=== PATIENT | female | born 1945 | race Caucasian/White ===

== ENCOUNTER 2018-01-01 15:45 | Observation (INO) ==
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
[2018-01-01 17:11] LABS: Baso % (Auto) 0.7 % (0.0-2.0); Eos # (Auto) 0.1 th/mm3 (0.0-0.4); Eos % (Auto) 1.1 % (0.0-4.0); Hematocrit 38.2 % (35.0-46.0); Hemoglobin 13.1 gm/dL (11.6-15.3); Lymph # (Auto) 1.6 th/mm3 (1.0-4.8); Mean Corpuscular HGB Conc 34.3 % (32.0-36.0); Mean Corpuscular Hemoglobin 30.2 pg (27.0-34.0); Mean Platelet Volume 8.5 fL (7.0-11.0); Mono # (Auto) 0.4 th/mm3 (0.0-0.9); Mono % (Auto) 6.7 % (0.0-8.0); Neut # (Auto) 3.9 th/mm3 (1.8-7.7); Neut % (Auto) 64.5 % (16.0-70.0); Platelet Count 256 th/mm3 (150-450); Red Blood Count 4.34 mil/mm3 (4.00-5.30); Red Cell Distribution Width 13.5 % (11.6-17.2)
[2018-01-01 17:20] LABS: Amphetamine Screen,Urine Neg (Neg); Barbiturate Screen,Urine Neg (Neg); Cannabinoid Screen,Urine Neg (Neg); Cocaine Screen,Urine Neg (Neg)
[2018-01-01 17:25] LABS: Opiate Screen,Urine Neg (Neg)
[2018-01-01 17:26] LABS: Alanine Aminotransferase 27 U/L (10-53); Albumin 4.2 g/dL (3.4-5.0); Anion Gap 7 meq/L (5-15); Aspartate Aminotransferase 14 U/L (15-37); Blood Urea Nitrogen 9 mg/dL (7-18); Calcium 9.3 mg/dL (8.5-10.1); Carbon Dioxide 29.8 meq/L (21.0-32.0); Chloride 103 meq/L (98-107); Glomerular Filtration Rate Greater Than 89 mL/min (>89); Glucose,Random 94 mg/dL (74-106); Magnesium 2.4 mg/dL (1.5-2.5); Sodium 140 meq/L (136-145)
[2018-01-01 17:32] LABS: Bilirubin,Urine Negative (Negative); Clarity,Urine Clear (Clear); Color,Urine Straw (Yellw/Straw); Glucose,Urine (UA) Negative (Negative); Leukocyte Esterase,Urine Negative (Negative); Mucus,Urine Few /lpf (Occasional); Nitrite,Urine Negative (Negative); Specific Gravity,Urine 1.002 (1.002-1.035)
[2018-01-01 17:36] LABS: Alkaline Phosphatase 78 U/L (45-117); Total Protein 7.5 g/dL (6.4-8.2)
--- NOTE | 2018-01-01 19:17 | CT ---
EXAM DATE: 01/01/2018 7:06 PM EDT AGE/SEX: 72 years / Female INDICATIONS: Right lower quadrant abdominal pain. CLINICAL DATA: This is the patient's initial encounter. Patient reports that signs and symptoms have been present for 1 day and indicates a pain score of 4/10. MEDICAL/SURGICAL HISTORY: Hypertension. A-fib. Seizures. Hysterectomy. ORAL CONTRAST: No oral contrast ingested. RADIATION DOSE: 14.52 CTDI (mGy) COMPARISON: No prior exams available for comparison. TECHNIQUE: Multiple contiguous axial images were obtained through the abdomen and pelvis following b olus infusion of 75 ml Omnipaque 350 (iohexol) nonionic water-soluble contrast as a single exam dos e. No oral contrast ingested. Using automated exposure control and adjustment of the mA and/or kV ac cording to patient size, radiation dose was kept as low as reasonably achievable to obtain optimal di agnostic quality images. DICOM format image data is available electronically for review and comparis on. FINDINGS: Lung bases are clear. There are degenerative changes of the spine noted. No pleural or pericardial ef fusions are seen. Liver, gallbladder, spleen, pancreas, adrenals, kidneys are unremarkable. Urinary b ladder is unremarkable. The patient is status post hysterectomy. There is severe diverticulosis of th e sigmoid colon, descending, transverse and descending colonic segments. There is no evidence for div erticulitis. Terminal ileum is unremarkable. The appendix is prominent in caliber up to 1.2 cm with w all thickening noted. There is a question of mild periappendiceal induration. No free fluid or absces s. No free air. Degenerative changes of the spine are noted. CONCLUSION: 1. Abnormal appendix characteristic of at least early appendicitis without perforation or abscess. 2. Severe diverticulosis without diverticulitis. Electronically signed by: Urbano Arguelles MD 01/01/2018 7:16 PM EDT
[2018-01-01] MEDS ORDERED: Ciprofloxacin 400 MG/200 ML 400 MG/200 ML PIGGYBACK IV.SIG ONE (20:07)
[2018-01-01] MEDS ORDERED: Bisacodyl 10 MG Supp RECTAL PRN (20:47)
--- NOTE | 2018-01-01 20:51 | P.HP ---
History of Present Illness Service: Hospitalist Primary Care Physician: No Primary Care Physician Chief Complaint: RLQ pain, dementia, suicidal/homicidal statements, under Guzmán Act History of Present Illness: This is a 72-year-old female with a past medical history significant for dementia, hypertension, congestive heart failure, atrial fibrillation and dyslipidemia who was admitted under Guzmán act after she called the police claiming that there was a strange man sleeping in her bed. Patient is an extremely poor historian and therefore history is obtained from review of the electronic medical record. Reportedly, patient lives by herself. In addition to claim that there was a man sleeping in her bed, patient also made suicidal homicidal statements saying that she was going to get a gun and kill her maintenance repairer and then kill herself. While in the ED, patient developed complaints of right lower quadrant abdominal pain. CT of the abdomen and pelvis was obtained revealing abnormal appendix characteristic of at least early appendicitis without perforation or abscess and severe diverticulosis without diverticulitis. ED physician spoke with Dr. Benitez of general surgery who recommended beginning antibiotics and consult for general surgery to evaluate the patient. Patient was started on IV Cipro and Flagyl. She does eat a full dinner without any complications. At present, the patient appears comfortable asleep in her bed. She is easily arousable to voice and touch. She does not indicate that she is in any pain. She is oriented to self only. Review of Systems unobtainable due to mental status PMFSH - History History Provided By: Patient, Medical Record - Medical History Medical History: Medical History (Last Reviewed 01/01/18 @ 20:32 by Christine Maynard) Atrial fibrillation History of hysterectomy Hypertension Seizures TBI (traumatic brain injury) - Surgical History Surgical History: Surgical History (Last Updated 01/01/18 @ 20:33 by Christine Maynard) H/O hand surgery - Family History Family History: Family History (Last Updated 01/01/18 @ 20:33 by Christine Maynard) Other Family history unobtainable due to patient's condition - Social History I have reviewed the patient's Social History: Yes - Tobacco History Smoking Status: Never smoker - Alcohol History How Often Do You Have a Drink Containing Alcohol: Never - Travel History Recent Travel in the [place] Within the Last 8 Weeks: No Recent Travel Out of the Country Within the Last 8 Weeks: No - Immunization History Tetanus Immunization: Unsure Medications and Allergies Active Medications: Active Medications Ciprofloxacin/Dextrose (Cipro 400 Mg/200 Ml Inj) 400 mg in 200 mls @ 200 mls/ hr IV.SIG ONCE ONE Stop: 01/01/18 21:06 Metronidazole/Sodium Chloride (Flagyl 500 Mg Inj) 100 mls @ 100 mls/hr IV.SIG ONCE ONE Stop: 01/01/18 21:06 Allergies Allergy/AdvReac Type Severity Reaction Status Date / Time aspirin Allergy Severe Nausea/Vomi Verified 01/01/18 23:41 ting oxycodone Allergy Severe Nausea/Vomi Verified 01/01/18 23:41 ting penicillin G Allergy Severe PASSES OUT Verified 01/01/18 23:41 acetaminophen Allergy Mild HIVES Verified 01/01/18 23:41 codeine Allergy Mild Nausea/Vomi Verified 01/01/18 23:41 ting doxycycline Allergy Mild ITCHY RED Verified 01/01/18 23:41 KNOTS formaldehyde Allergy Mild DIFF.BREATH Verified 01/01/18 23:41 ING minocycline Allergy Mild ITCHY RED Verified 01/01/18 23:41 KNOTS tigecycline Allergy Mild ITCHY RED Verified 01/01/18 23:41 KNOTS tramadol Allergy Mild HIVES Verified 01/01/18 23:41 CHEMICALS Allergy Severe CHLORINE,BLEACH,ACETONE,--ROMERO Uncoded 03/26/03 13:58 IN MOUTH,DIFF.BREATHING Home Medications Medication Instructions Recorded Confirmed Type No Known Home Medications 01/01/18 01/01/18 History Exam Vital signs: Vital Signs 01/01/18 16:01 01/01/18 16:32 01/01/18 17:07 Temperature 98.2 F Pulse Rate 73 Respiratory Rate 18 18 Blood Pressure 223/105 H 224/111 H 191/91 H Pulse Oximetry 96 Intake & Output 01/01/18 01/01/18 01/02/18 06:59 18:59 06:59 Weight 68.039 kg Narrative: GENERAL: WDWN elderly female patient, INAD. Resting comfortably in bed asleep, easily arousable. Oriented to self only. SKIN: Warm and dry. HEAD: Atraumatic. Normocephalic. EYES: Pupils equal and round. No scleral icterus. No injection or drainage. ENT: No nasal bleeding or discharge. Mucous membranes pink and moist. NECK: Trachea midline. CARDIOVASCULAR: Regular rate and rhythm. RESPIRATORY: No accessory muscle use. Clear to auscultation anteriorly. Breath sounds equal bilaterally. GASTROINTESTINAL: Abdomen soft, non-tender, nondistended. Normoactive bowel sounds. MUSCULOSKELETAL: Extremities without clubbing, cyanosis, or edema. No obvious deformities. NEUROLOGICAL: Awake. Oriented to self only. Will follow some simple commands. No obvious cranial nerve deficits. Able to move all extremities spontaneously. Soft muffled speech. PSYCHIATRIC: Calm. Results - Labs CBC & Chem 7: 01/01/18 16:50 01/01/18 16:50 Labs: Laboratory Results - last 24 hr 01/01/18 01/01/18 01/01/18 16:50 16:50 16:50 WBC 6.0 RBC 4.34 Hgb 13.1 Hct 38.2 MCV 88.0 MCH 30.2 MCHC 34.3 RDW 13.5 Plt Count 256 MPV 8.5 Neut % (Auto) 64.5 Lymph % (Auto) 27.0 [place] % (Auto) 6.7 Eos % (Auto) 1.1 Baso % (Auto) 0.7 Neut # (Auto) 3.9 Lymph # (Auto) 1.6 [place] # (Auto) 0.4 Eos # (Auto) 0.1 Baso # (Auto) 0.0 WBC Differential . Differential Comment Auto diff final Sodium 140 Potassium 4.0 Chloride 103 Carbon Dioxide 29.8 Anion Gap 7 BUN 9 Creatinine 0.64 Estimated GFR Greater than 89 Random Glucose 94 Calcium 9.3 Magnesium 2.4 Total Bilirubin 0.3 AST 14 L ALT 27 Alkaline Phosphatase 78 Total Protein 7.5 Albumin 4.2 TSH 1.970 Urine Color Urine Clarity Urine pH Ur Specific [place] Urine Protein Urine Glucose (UA) Urine Ketones Urine Occult Blood Urine Nitrate Urine Bilirubin Urine Urobilinogen Ur Leukocyte Esterase Urine RBC Urine WBC Urine Mucus Micro UA Comment Ur Microscopic Review Urine Culture Comments Urine Opiates Screen Neg Ur Barbiturates Screen Neg Ur Amphetamines Screen Neg U Benzodiazepines Scrn Neg Urine Cocaine Screen Neg U Cannabinoids Screen Neg Serum Alcohol Less than 3 01/01/18 16:50 WBC RBC Hgb Hct MCV MCH MCHC RDW Plt Count MPV Neut % (Auto) Lymph % (Auto) [place] % (Auto) Eos % (Auto) Baso % (Auto) Neut # (Auto) Lymph # (Auto) [place] # (Auto) Eos # (Auto) Baso # (Auto) WBC Differential Differential Comment Sodium Potassium Chloride Carbon Dioxide Anion Gap BUN Creatinine Estimated GFR Random Glucose Calcium Magnesium Total Bilirubin AST ALT Alkaline Phosphatase Total Protein Albumin TSH Urine Color Straw Urine Clarity Clear Urine pH 6.0 Ur Specific [place] 1.002 Urine Protein Negative Urine Glucose (UA) Negative Urine Ketones Negative Urine Occult Blood Negative Urine Nitrate Negative Urine Bilirubin Negative Urine Urobilinogen Less than 2 Ur Leukocyte Esterase Negative Urine RBC 1 Urine WBC Less than 1 Urine Mucus Few H Micro UA Comment Culture not ind Ur Microscopic Review Not Reportable Urine Culture Comments Culture not ind Urine Opiates Screen Ur Barbiturates Screen Ur Amphetamines Screen U Benzodiazepines Scrn Urine Cocaine Screen U Cannabinoids Screen Serum Alcohol - Imaging Impressions Abdomen/Pelvis CT 01/01/18 16:35 CONCLUSION: 1. Abnormal appendix characteristic of at least early appendicitis without perforation or abscess. 2. Severe diverticulosis without diverticulitis. Caprini VTE Risk Assessment Caprini VTE Risk Assessment: Moderate/High Risk (score >= 2) Caprini Risk Assessment Model: Point Value = 1 Point Value = 2 Point Value = 3 Point Value = 5 Age 41-60 Minor surgery BMI > 25 kg/m2 Swollen legs Varicose veins or History of unexplained or recurrent spontaneous Oral contraceptives or hormone replacement Sepsis (< 1 month) Serious lung disease, including pneumonia (< 1 month) Abnormal pulmonary function Acute myocardial infarction Congestive heart failure (< 1 month) History of inflammatory bowel disease Medical patient at bed rest Age 61-74 Arthroscopic surgery Major open surgery (> 45 min) Laparoscopic surgery (> 45 min) Malignancy Confined to bed (> 72 hours) Immobilizing plaster cast Central venous access Age >= 75 History of VTE Family history of VTE Factor V Leiden Prothrombin [id number] Lupus anticoagulant Anticardiolipin antibodies Elevated serum homocysteine Heparin-induced thrombocytopenia Other congenital or acquired thrombophilia Stroke (< 1 month) Elective arthroplasty Hip, pelvis, or leg fracture Acute spinal cord injury (< 1 month) Prophylaxis Regimen: Total Risk Factor Score Risk Level Prophylaxis Regimen 0-1 Low Early ambulation 2 Moderate Order ONE of the following: *Sequential Compression Device (SCD) *Heparin 5000 units SQ BID 3-4 Higher Order ONE of the following medications: *Heparin 5000 units SQ TID *Enoxaparin/Lovenox 40 mg SQ daily (WT < 150 kg, CrCl > 30 mL/min) *Enoxaparin/Lovenox 30 mg SQ daily (WT < 150 kg, CrCl > 10-29 mL/min) *Enoxaparin/Lovenox 30 mg SQ BID (WT < 150 kg, CrCl > 30 mL/min) AND/OR *Sequential Compression Device (SCD) 5 or more Highest Order ONE of the following medications: *Heparin 5000 units SQ TID (Preferred with Epidurals) *Enoxaparin/Lovenox 40 mg SQ daily (WT < 150 kg, CrCl > 30 mL/min) *Enoxaparin/Lovenox 30 mg SQ daily (WT < 150 kg, CrCl > 10-29 mL/min) *Enoxaparin/Lovenox 30 mg SQ BID (WT < 150 kg, CrCl > 30 mL/min) AND *Sequential Compression Device (SCD) Assessment and Plan - Plan 72-year-old female with a past medical history significant for dementia, hypertension, congestive heart failure, atrial fibrillation and dyslipidemia who was admitted under Guzmán act after she called the police claiming that there was a strange man sleeping in her bed, threatened to shoot the maintenance repairer then kill herself. Additionally patient has complaints of right lower quadrant pain with abnormal appearing appendix on CT. Dementia with behavioral disturbance Suicidal/homicidal statements UDS neg UA unremarkable CBC WNL Serum EtOH less than 3 -Consult psychiatry, appreciate assistance Right lower quadrant pain, possibly secondary to early appendicitis CT abd/pelvis reveals abnormal appendix characteristic of at least early appendicitis without perforation or abscess, severe diverticulosis without diverticulitis tolerating diet, no N/V or abdominal pain at present -started on IV Cipro and Flagyl in the ED, continue -NPO, IVF -Consult GS, appreciate assistance -IV pain meds and antiemetics prn -monitor Hx of afib, rate controlled -will resume home meds once med rec completed HTN, uncontrolled BP 223/105 -IV Vasotec prn -will resume home meds once med rec completed Dyslipidemia -will resume home meds once med rec completed CHF, appears euvolemic on exam, not decompensated -monitor closely while on IVF hydration -Continue to monitor volume status -monitor respiratory status DVT prophylaxis -bilateral SCD/NATALIE hose Code Status: Full Discussed Condition With: patient, ED physician, Dr. Baker
[2018-01-01] MEDS ORDERED: Sodium Chloride 0.9% 2 ML Flush PRN IV.FLUSH (21:08)
[2018-01-01] MEDS: Sod Chloride 0.9% Inj 1,000 ML IV.CONT SCH (23:10)
[2018-01-02 07:44] LABS: Baso % (Auto) 0.5 % (0.0-2.0); Eos # (Auto) 0.1 th/mm3 (0.0-0.4); Eos % (Auto) 1.9 % (0.0-4.0); Lymph # (Auto) 1.7 th/mm3 (1.0-4.8); Lymph % (Auto) 30.2 % (9.0-44.0); Mean Corpuscular HGB Conc 34.3 % (32.0-36.0); Mean Corpuscular Hemoglobin 29.9 pg (27.0-34.0); Mean Corpuscular Volume 87.2 fL (80.0-100.0); Mean Platelet Volume 8.7 fL (7.0-11.0); Mono # (Auto) 0.4 th/mm3 (0.0-0.9); Mono % (Auto) 7.1 % (0.0-8.0); Neut # (Auto) 3.3 th/mm3 (1.8-7.7); Neut % (Auto) 60.3 % (16.0-70.0); Platelet Count 255 th/mm3 (150-450); Red Blood Count 4.36 mil/mm3 (4.00-5.30); Red Cell Distribution Width 13.3 % (11.6-17.2); White Blood Count 5.5 th/mm3 (4.0-11.0)
[2018-01-02 08:11] LABS: Alanine Aminotransferase 22 U/L (10-53); Albumin 3.6 g/dL (3.4-5.0); Anion Gap 7 meq/L (5-15); Aspartate Aminotransferase 12 U/L (15-37); Blood Urea Nitrogen 9 mg/dL (7-18); Calcium 8.8 mg/dL (8.5-10.1); Chloride 103 meq/L (98-107); Glomerular Filtration Rate 89 mL/min (>89); Glucose,Random 87 mg/dL (74-106); Potassium 3.9 meq/L (3.5-5.1); Sodium 140 meq/L (136-145)
[2018-01-02 08:21] LABS: Alkaline Phosphatase 67 U/L (45-117)
[2018-01-02] MEDS: Ciprofloxacin 400 MG/200 ML 400 MG/200 ML PIGGYBACK IV.SIG SCH ×2 (08:38→21:51)
[2018-01-02] MEDS: Sodium Chloride 0.9% 2 ML Flush BID IV.FLUSH SCH (08:38)
--- NOTE | 2018-01-02 11:27 | P.PN ---
Subjective Interval history: Follow up for appendicitis, uncontrolled hypertension, dementia, suicidal/ homicidal ideations. The patient is seen with her sitter at bedside. She is awake, alert, oriented to self, place, and month/year. Patient reports continued unchanged right lower quadrant abdominal pain. Denies any nausea or vomiting. Denies fevers but does report chills. Her blood pressure has been uncontrolled, patient denies being on any blood pressure medications at home, but states she has had hypertension because of her weight. She denies any other medical complaints including no cough, chest pain, shortness of breath, or urinary complaints. Going for appendectomy today. Physical Exam Vital signs: Vital Signs 01/01/18 16:01 01/01/18 16:32 01/01/18 17:07 Temperature 98.2 F Pulse Rate 73 Respiratory Rate 18 18 Blood Pressure 223/105 H 224/111 H 191/91 H Pulse Oximetry 96 01/01/18 22:18 01/02/18 00:00 01/02/18 06:41 Temperature 98.5 F 97.6 F Pulse Rate 57 L 55 L 55 L Respiratory Rate 18 20 18 Blood Pressure 165/80 H 186/86 H 186/85 H Pulse Oximetry 99 95 96 01/02/18 08:34 Temperature 98.5 F Pulse Rate 51 L Respiratory Rate 18 Blood Pressure 180/82 H Pulse Oximetry 98 Intake & Output 01/01/18 01/02/18 01/02/18 18:59 06:59 18:59 Intake Total 400 / 400 200 / 200 Balance 400 / 400 200 / 200 Weight 68.039 kg Intake: IV 400 / 400 200 / 200 Cipro 400 MG/200 ML Inj 400 mg 200 / 200 200 / 200 In 200 ml @ 200 mls/hr IV.SIG Q12H SHAHNAZ Rx#:[id number] Flagyl 500 MG Inj 100 ML @ 100 200 / 200 mls/hr IV.SIG Q8H SHAHNAZ Rx#: [id number] Other: # Voids 2 Narrative: GENERAL: Well-nourished, well-developed elderly female patient in [facility]. SKIN: Warm and dry. No rash. HEENT: Normocephalic. Atraumatic. Pupils equal and round. Mucous membranes pink and moist. CARDIOVASCULAR: Regular rate and rhythm. No murmur appreciated. RESPIRATORY: No accessory muscle use. Clear to auscultation. Breath sounds equal bilaterally. GASTROINTESTINAL: Abdomen soft, nondistended, mild RLQ TTP. Normoactive bowel sounds x4. MUSCULOSKELETAL: No obvious deformities. Extremities without clubbing, cyanosis , or edema. NEUROLOGICAL: Awake and alert oriented x3. Motor grossly within normal limits. Moving all extremities spontaneously. Normal speech. PSYCHIATRIC: Calm mood; insight and judgment limited. Results - Labs CBC & Chem 7: 01/02/18 05:48 01/02/18 05:48 Laboratory Results - last 24 hr 01/01/18 01/01/18 01/01/18 16:50 16:50 16:50 WBC 6.0 RBC 4.34 Hgb 13.1 Hct 38.2 MCV 88.0 MCH 30.2 MCHC 34.3 RDW 13.5 Plt Count 256 MPV 8.5 Neut % (Auto) 64.5 Lymph % (Auto) 27.0 [place] % (Auto) 6.7 Eos % (Auto) 1.1 Baso % (Auto) 0.7 Neut # (Auto) 3.9 Lymph # (Auto) 1.6 [place] # (Auto) 0.4 Eos # (Auto) 0.1 Baso # (Auto) 0.0 WBC Differential . Differential Comment Auto diff final Sodium 140 Potassium 4.0 Chloride 103 Carbon Dioxide 29.8 Anion Gap 7 BUN 9 Creatinine 0.64 Estimated GFR Greater than 89 Random Glucose 94 Calcium 9.3 Magnesium 2.4 Total Bilirubin 0.3 AST 14 L ALT 27 Alkaline Phosphatase 78 Total Protein 7.5 Albumin 4.2 TSH 1.970 Urine Color Urine Clarity Urine pH Ur Specific [place] Urine Protein Urine Glucose (UA) Urine Ketones Urine Occult Blood Urine Nitrate Urine Bilirubin Urine Urobilinogen Ur Leukocyte Esterase Urine RBC Urine WBC Urine Mucus Micro UA Comment Ur Microscopic Review Urine Culture Comments Urine Opiates Screen Neg Ur Barbiturates Screen Neg Ur Amphetamines Screen Neg U Benzodiazepines Scrn Neg Urine Cocaine Screen Neg U Cannabinoids Screen Neg Serum Alcohol Less than 3 01/01/18 01/02/18 01/02/18 16:50 05:48 05:48 WBC 5.5 RBC 4.36 Hgb 13.0 Hct 38.0 MCV 87.2 MCH 29.9 MCHC 34.3 RDW 13.3 Plt Count 255 MPV 8.7 Neut % (Auto) 60.3 Lymph % (Auto) 30.2 [place] % (Auto) 7.1 Eos % (Auto) 1.9 Baso % (Auto) 0.5 Neut # (Auto) 3.3 Lymph # (Auto) 1.7 [place] # (Auto) 0.4 Eos # (Auto) 0.1 Baso # (Auto) 0.0 WBC Differential . Differential Comment Auto diff final Sodium 140 Potassium 3.9 Chloride 103 Carbon Dioxide 30.0 Anion Gap 7 BUN 9 Creatinine 0.65 Estimated GFR 89 Random Glucose 87 Calcium 8.8 Magnesium Total Bilirubin 0.4 AST 12 L ALT 22 Alkaline Phosphatase 67 Total Protein 7.0 Albumin 3.6 D TSH Urine Color Straw Urine Clarity Clear Urine pH 6.0 Ur Specific [place] 1.002 Urine Protein Negative Urine Glucose (UA) Negative Urine Ketones Negative Urine Occult Blood Negative Urine Nitrate Negative Urine Bilirubin Negative Urine Urobilinogen Less than 2 Ur Leukocyte Esterase Negative Urine RBC 1 Urine WBC Less than 1 Urine Mucus Few H Micro UA Comment Culture not ind Ur Microscopic Review Not Reportable Urine Culture Comments Culture not ind Urine Opiates Screen Ur Barbiturates Screen Ur Amphetamines Screen U Benzodiazepines Scrn Urine Cocaine Screen U Cannabinoids Screen Serum Alcohol - Imaging Impressions Abdomen/Pelvis CT 01/01/18 16:35 CONCLUSION: 1. Abnormal appendix characteristic of at least early appendicitis without perforation or abscess. 2. Severe diverticulosis without diverticulitis. Assessment and Plan - Plan 72-year-old female with a past medical history significant for dementia, hypertension, congestive heart failure, atrial fibrillation and dyslipidemia who was admitted under Guzmán act after she called the police claiming that there was a strange man sleeping in her bed, threatened to shoot the industrial maintenance millwright then kill herself. Additionally patient has complaints of right lower quadrant pain with abnormal appearing appendix on CT. Dementia with behavioral disturbance/Suicidal/homicidal statements: acute on chronic -Rule out toxic/metabolic etiologies for encephalopathy: UDS/etoh neg, UA unremarkable, CBC/CMP WNL -Consult psychiatry, appreciate assistance, recommends admission to inpatient psychiatry when medically clear Suspected appendicitis: patient with +RLQ abdominal pain -CT abd/pelvis reviewed, shows abnormal appendix characteristic of at least early appendicitis without perforation or abscess, severe diverticulosis without diverticulitis -started on IV Cipro and Flagyl in the ED, continue -Keep NPO, give IVF hydration -IV pain meds prn and antiemetics prn -Consult General Surgery, planning for appendectomy today Hx of afib, rate controlled -will resume home meds once med rec completed Hypertensive Urgency with Accelerated Hypertension: BP 223/105 -Continue IV Vasotec prn, increased to 2.5mg IV q6h prn -resume home meds once med rec completed, although patient claims she is not on any antihypertensives -give hydralazine prn if no improvement with vasotec -start on lisinopril 10mg bid Dyslipidemia -will resume home meds once med rec completed CHF: chronic, appears euvolemic on exam, not decompensated -monitor closely while on IVF hydration -Continue to monitor volume and respiratory status DVT prophylaxis-bilateral SCD/NATALIE; avoid chemical prophylaxis with upcoming procedure Discharge Planning: Going for appendectomy today. Once cleared by surgery, will plan to discharge to inpatient psychiatry vs med psych unit.
--- NOTE | 2018-01-02 12:15 | P.CONGS ---
[facility] Gen Surgery Consult Note Consult date: 01/02/18 Reason for consult: abdominal pain Requesting physician: Lamont Baker Narrative: CONSULTATION NOTE FOR SURGICAL ATTENDING, DR. AKASH HANKS This is a 72 year old female with a past medical history of dementia, hypertension, congestive heart failure, atrial fibrillation and dyslipidemia who presented to the ED yesterday after she was Guzmán Acted by the police after thoughts of delusion. She reports to the ED that she had RIGHT lower quadrant abdominal pain that began on Sunday. She denies any nausea or vomiting. She ate dinner last night without any issues. A CT abdomen/pelvis was obtained which is concerning for early acute appendicitis. Her WBC is normal. Oh note, the patient states that she does not take any medications at home. A General Surgery consultation has been requested. Review of Systems All other systems reviewed negative except as stated in [facility] PMF - History History Provided By: Patient, Medical Record - Medical History Medical History: Medical History (Last Reviewed 01/02/18 @ 15:53 by Akash Hanks MD) Atrial fibrillation History of hysterectomy Hypertension Seizures TBI (traumatic brain injury) - Surgical History Surgical History: Surgical History (Last Reviewed 01/02/18 @ 15:53 by Akash Hanks MD) H/O hand surgery S/P total abdominal hysterectomy - Family History Family History: Family History (Last Reviewed 01/02/18 @ 15:53 by Akash Hanks MD) Other Family history unobtainable due to patient's condition - Social History I have reviewed the patient's Social History: Yes - Tobacco History Second Hand Smoke Exposure: No Smoking Status: Never smoker - Alcohol History How Often Do You Have a Drink Containing Alcohol: Never - Substance Use History Substance History: No History of Abuse - Travel History Recent Travel in the [place] Within the Last 8 Weeks: No Recent Travel Out of the Country Within the Last 8 Weeks: No - Immunization History Tetanus Immunization: Unsure Medications and Allergies Allergies Allergy/AdvReac Type Severity Reaction Status Date / Time aspirin Allergy Severe Nausea/Vomi Verified 01/01/18 23:41 ting oxycodone Allergy Severe Nausea/Vomi Verified 01/01/18 23:41 ting penicillin G Allergy Severe PASSES OUT Verified 01/01/18 23:41 acetaminophen Allergy Mild HIVES Verified 01/01/18 23:41 codeine Allergy Mild Nausea/Vomi Verified 01/01/18 23:41 ting doxycycline Allergy Mild ITCHY RED Verified 01/01/18 23:41 KNOTS formaldehyde Allergy Mild DIFF.BREATH Verified 01/01/18 23:41 ING minocycline Allergy Mild ITCHY RED Verified 01/01/18 23:41 KNOTS tigecycline Allergy Mild ITCHY RED Verified 01/01/18 23:41 KNOTS tramadol Allergy Mild HIVES Verified 01/01/18 23:41 CHEMICALS Allergy Severe CHLORINE,BLEACH,ACETONE,--ROMERO Uncoded 03/26/03 13:58 IN MOUTH,DIFF.BREATHING Home Medications Medication Instructions Recorded Confirmed Type No Known Home Medications 01/01/18 01/01/18 History Active Medications: Active Medications Al Hydroxide/Mg Hydroxide (Milk Of Magnesia Liq) 30 ml PO Q12H PRN PRN Reason: Mild Constipation Bisacodyl (Dulcolax Supp) 10 mg RECTAL DAILY PRN PRN Reason: SEVERE CONSITIPATION Enalaprilat (Vasotec Inj) 2.5 mg IV.PUSH Q6H PRN PRN Reason: SBP>160, DBP>90 Hydralazine HCl (Apresoline) 25 mg PO Q6H PRN PRN Reason: SBP > 160, DBP > 90 Ciprofloxacin/Dextrose (Cipro 400 Mg/200 Ml Inj) 400 mg in 200 mls @ 200 mls/ hr IV.SIG Q12H [facility] Last Infusion: 01/02/18 10:54 Dose: Infused Metronidazole/Sodium Chloride (Flagyl 500 Mg Inj) 100 mls @ 100 mls/hr IV.SIG Q8H [facility] Last Infusion: 01/02/18 05:55 Dose: Infused Sodium Chloride (Ns Inj) 1,000 mls @ 42 mls/hr IV.CONT .[id number] [facility] Last Admin: 01/01/18 23:10 Dose: 42 mls/hr Lactulose (Lactulose Liq) 30 ml PO DAILY PRN PRN Reason: SEVERE CONSITIPATION Lisinopril (Prinivil) 10 mg PO BID [facility] Sennosides (Senokot) 17.2 mg PO Q12H PRN PRN Reason: Moderate Constipation Sodium Chloride (Ns Flush) 2 ml IV.FLUSH BID [facility] Last Admin: 01/02/18 08:38 Dose: 2 ml Sodium Chloride (Ns Flush) 2 ml IV.FLUSH PRN PRN PRN Reason: FLUSH AFTER USING IV ACCESS Exam Vital signs: Vital Signs 01/01/18 16:01 01/01/18 16:32 01/01/18 17:07 Temperature 98.2 F Pulse Rate 73 Respiratory Rate 18 18 Blood Pressure 223/105 H 224/111 H 191/91 H Pulse Oximetry 96 01/01/18 22:18 01/02/18 00:00 01/02/18 06:41 Temperature 98.5 F 97.6 F Pulse Rate 57 L 55 L 55 L Respiratory Rate 18 20 18 Blood Pressure 165/80 H 186/86 H 186/85 H Pulse Oximetry 99 95 96 01/02/18 08:34 01/02/18 11:51 Temperature 98.5 F 97.4 F L Pulse Rate 51 L 55 L Respiratory Rate 18 18 Blood Pressure 180/82 H 193/89 H Pulse Oximetry 98 97 Intake & Output 01/01/18 01/02/18 01/02/18 18:59 06:59 18:59 Intake Total 400 / 400 200 / 200 Balance 400 / 400 200 / 200 Weight 68.039 kg Intake: IV 400 / 400 200 / 200 Cipro 400 MG/200 ML Inj 400 mg 200 / 200 200 / 200 In 200 ml @ 200 mls/hr IV.SIG Q12H [facility] Rx#:[id number] Flagyl 500 MG Inj 100 ML @ 100 200 / 200 mls/hr IV.SIG Q8H [facility] Rx#: [id number] Other: # Voids 2 Narrative: GENERAL: 72 year old female resting in bed with sitter at the bedside. SKIN: Warm and dry. HEAD: Atraumatic. Normocephalic. EYES: Pupils equal and round. No scleral icterus. No injection or drainage. ENT: No nasal bleeding or discharge. Mucous membranes pink and moist. NECK: Trachea midline. CARDIOVASCULAR: Regular rate and rhythm. RESPIRATORY: No accessory muscle use. Clear to auscultation. Breath sounds equal bilaterally. GASTROINTESTINAL: Abdomen soft, nondistended. TTP throughout abdomen more in RLQ. Well healed low transverse incision. MUSCULOSKELETAL: Extremities without clubbing, cyanosis, or edema. No obvious deformities. NEUROLOGICAL: Awake and alert. No obvious cranial nerve deficits. Motor grossly within normal limits. Five out of 5 muscle strength in the arms and legs. Normal speech. PSYCHIATRIC: Delusional thoughts. Results - Labs 01/02/18 05:48 01/02/18 05:48 Laboratory Results WBC 5.5 th/mm3 (4.0-11.0) 01/02/18 05:48 RBC 4.36 mil/mm3 (4.00-5.30) 01/02/18 05:48 Hgb 13.0 gm/dL (11.6-15.3) 01/02/18 05:48 Hct 38.0 % (35.0-46.0) 01/02/18 05:48 MCV 87.2 fL (80.0-100.0) 01/02/18 05:48 MCH 29.9 pg (27.0-34.0) 01/02/18 05:48 MCHC 34.3 % (32.0-36.0) 01/02/18 05:48 RDW 13.3 % (11.6-17.2) 01/02/18 05:48 Plt Count 255 th/mm3 (150-450) 01/02/18 05:48 MPV 8.7 fL (7.0-11.0) 01/02/18 05:48 Neut % (Auto) 60.3 % (16.0-70.0) 01/02/18 05:48 Lymph % (Auto) 30.2 % (9.0-44.0) 01/02/18 05:48 [place] % (Auto) 7.1 % (0.0-8.0) 01/02/18 05:48 Eos % (Auto) 1.9 % (0.0-4.0) 01/02/18 05:48 Baso % (Auto) 0.5 % (0.0-2.0) 01/02/18 05:48 Neut # (Auto) 3.3 th/mm3 (1.8-7.7) 01/02/18 05:48 Lymph # (Auto) 1.7 th/mm3 (1.0-4.8) 01/02/18 05:48 [place] # (Auto) 0.4 th/mm3 (0.0-0.9) 01/02/18 05:48 Eos # (Auto) 0.1 th/mm3 (0.0-0.4) 01/02/18 05:48 Baso # (Auto) 0.0 th/mm3 (0.0-0.2) 01/02/18 05:48 WBC Differential . 01/02/18 05:48 Differential Comment Auto diff final 01/02/18 05:48 Sodium 140 meq/L (136-145) 01/02/18 05:48 Potassium 3.9 meq/L (3.5-5.1) 01/02/18 05:48 Chloride 103 meq/L (98-107) 01/02/18 05:48 Carbon Dioxide 30.0 meq/L (21.0-32.0) 01/02/18 05:48 Anion Gap 7 meq/L (5-15) 01/02/18 05:48 BUN 9 mg/dL (7-18) 01/02/18 05:48 Creatinine 0.65 mg/dL (0.50-1.00) 01/02/18 05:48 Estimated GFR 89 mL/min (>89) 01/02/18 05:48 Random Glucose 87 mg/dL (74-106) 01/02/18 05:48 Calcium 8.8 mg/dL (8.5-10.1) 01/02/18 05:48 Magnesium 2.4 mg/dL (1.5-2.5) 01/01/18 16:50 Total Bilirubin 0.4 mg/dL (0.2-1.0) 01/02/18 05:48 AST 12 U/L (15-37) L 01/02/18 05:48 ALT 22 U/L (10-53) 01/02/18 05:48 Alkaline Phosphatase 67 U/L (45-117) 01/02/18 05:48 Total Protein 7.0 g/dL (6.4-8.2) 01/02/18 05:48 Albumin 3.6 g/dL (3.4-5.0) D 01/02/18 05:48 TSH 1.970 uIU/mL (0.358-3.740) 01/01/18 16:50 Urine Color Straw (Yellw/Straw) 01/01/18 16:50 Urine Clarity Clear (Clear) 01/01/18 16:50 Urine pH 6.0 (5.0-8.5) 01/01/18 16:50 Ur Specific [place] 1.002 (1.002-1.035) 01/01/18 16:50 Urine Protein Negative mg/dL (Neg-Trace) 01/01/18 16:50 Urine Glucose (UA) Negative mg/dL (Negative) 01/01/18 16:50 Urine Ketones Negative mg/dL (Negative) 01/01/18 16:50 Urine Occult Blood Negative (Negative) 01/01/18 16:50 Urine Nitrate Negative (Negative) 01/01/18 16:50 Urine Bilirubin Negative (Negative) 01/01/18 16:50 Urine Urobilinogen Less than 2 mg/dL (Less than 2) 01/01/18 16:50 Ur Leukocyte Esterase Negative (Negative) 01/01/18 16:50 Urine RBC 1 /hpf (0-3) 01/01/18 16:50 Urine WBC Less than 1 /hpf (0-5) 01/01/18 16:50 Urine Mucus Few /lpf (Occasional) H 01/01/18 16:50 Micro UA Comment Culture not ind 01/01/18 16:50 Ur Microscopic Review Not Reportable 01/01/18 16:50 Urine Culture Comments Culture not ind 01/01/18 16:50 Urine Opiates Screen Neg (Neg) 01/01/18 16:50 Ur Barbiturates Screen Neg (Neg) 01/01/18 16:50 Ur Amphetamines Screen Neg (Neg) 01/01/18 16:50 U Benzodiazepines Scrn Neg (Neg) 01/01/18 16:50 Urine Cocaine Screen Neg (Neg) 01/01/18 16:50 U Cannabinoids Screen Neg (Neg) 01/01/18 16:50 Serum Alcohol Less than 3 mg/dL (0-5) 01/01/18 16:50 Impressions Abdomen/Pelvis CT 01/01/18 16:35 CONCLUSION: 1. Abnormal appendix characteristic of at least early appendicitis without perforation or abscess. 2. Severe diverticulosis without diverticulitis. - Imaging Imaging: ITS Impressions Abdomen/Pelvis CT 01/01/18 16:35 CONCLUSION: 1. Abnormal appendix characteristic of at least early appendicitis without perforation or abscess. 2. Severe diverticulosis without diverticulitis. CT scan - abdomen: report reviewed, image reviewed CT scan - pelvis: report reviewed, image reviewed Assessment and Plan - Assessment (1) Acute appendicitis Code(s): K35.80 - Unspecified acute appendicitis Status: Acute Qualifiers: Acute appendicitis type: with localized peritonitis Appendicitis perforation presence: without perforation Appendicitis abscess presence: without abscess Plan: 72 year old female with delusions thoughts; Guzmán Act; RLQ pain -CT c/w appendicitis -NPO -Will plan for OR for laparoscopic appendectomy; possible open procedure with Dr. Hanks for this afternoon -Procedure explained in detail and all questions answered -Discussed with Dr. Edmonds---patient is competent to sign consents -Once medically stable she will need to go to inpatient psychiatric unit -Thank you for this consult; We will continue to follow (2) Atrial fibrillation Code(s): I48.91 - Unspecified atrial fibrillation Status: Acute (3) Unspecified psychosis Code(s): F29 - Unspecified psychosis not due to a substance or known physiological condition Status: Acute - Plan Discussed Condition With: Dr. Latonya Hudson - Attending Attestation CONSULTATION NOTE FOR SURGICAL ATTENDING, DR. AKASH HANKS I agree with above assessment and plan. The exam, history, and the medical decision-making described in the above note were completed with the assistance of the mid-level provider. I reviewed and agree with the findings presented. I attest that I had a [id number] encounter with the patient on the same day, and personally performed and documented my assessment and findings in the medical record. The following services were provided during this hospital visit: Chart data review, vital sign assessments/reviewing monitor data Review of consultations notes if present. Medication orders/review and/or management Ordering and/or reviewing lab tests Ordering and/or interpreting/reviewing x-rays and/or diagnostic studies Care of the patient and discussion of the patient with the care team Documentation time To help prompt me to consider important information that might be impacting today's encounter and assessment, Information from prior notes written by myself or my colleagues may have been "brought forward/copy and pasted" into today's note.
[2018-01-02] MEDS ORDERED: hydrALAZINE 25 MG Tablet PO PRN (14:00)
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
[2018-01-02] MEDS: QUEtiapine 25 MG Tablet PO SCH ×2 (14:31→20:42)
--- NOTE | 2018-01-02 14:55 | ECG ---
Date Performed: 01/01/2018 Time Performed: 16:55:36 PTAGE: 72 years EKG: Sinus rhythm MINIMAL VOLTAGE CRITERIA FOR LVH, CONSIDER NORMAL VARIANT BORDERLINE ECG PREVIOUS TRACING : 02/20/2015 14.19 DOCTOR: Saad Horne Interpretating Date/Time 01/02/2018 14:54:02
[2018-01-02] MEDS: Lisinopril 10 MG Tablet PO SCH (20:42)
[2018-01-02] MEDS ORDERED: Bupivacaine/Epinephrine PF Inj 0.5% 30 ML Vial ONE (21:13)
[2018-01-02] MEDS ORDERED: Lidocaine PF 1% Inj 5 ML Syringe OTHER ONE (21:17)
[2018-01-02] MEDS ORDERED: fentaNYL Citrate Inj 100 MCG/2 ML Ampul ONE (22:37)
--- NOTE | 2018-01-02 23:40 | MP ---
cc: Akash Hanks MD, Joseph D MD DATE OF OPERATION: 01/02/2018 PREOPERATIVE DIAGNOSIS: Appendicitis. POSTOPERATIVE DIAGNOSIS: Appendicitis. PROCEDURE PERFORMED: Laparoscopic appendectomy. ANESTHESIA: General. SURGEON: Akash Hanks MD INDICATIONS: This is a 72-year-old female who came into the emergency room after being Guzmán Acted and hallucinating. A CT scan was obtained showing appendicitis. Surgery was consulted after further evaluation. It was felt the patient had some abdominal discomfort. On my examination, after she was admitted and Guzmán Acted, she did complain of some right lower quadrant pain. Plans were made for above. DESCRIPTION OF PROCEDURE: The patient was taken to the operating room and placed in the supine position. After anesthesia, her abdomen was prepped with Betadine. She was given preoperative antibiotics. A timeout was performed. We made an incision above the umbilicus. Veress needle was inserted. The saline load test performed. The abdomen was insufflated to 15 mmHg. A 10-mm trocar was introduced. Two other working ports were placed in the midline, one above the pubic tubercle, one in between the two previously placed ports. The appendix can be seen slightly inflamed and elongated and dilated. The appendiceal artery was taken down with Harmonic scalpel as well as the mesentery of the appendix. Two #1 PDS Endoloops were then placed around the base of the appendix and the appendix was amputated off, placed in an EndoCatch, pulled out through the umbilical incision and passed off the field. We did check our dissection sites, excellent hemostasis. No other gross abnormalities seen. She did have some minor adhesions in her abdomen, which were taken down to facilitate visualization of the appendix. The gallbladder appears normal. Liver appears normal. Her colon does have some mild diverticular disease. At the completion of the procedure, the trocars were removed. CO2 was removed. The fascial layer at the umbilicus was closed with 0 Vicryl. Skin was closed with a 4-0 Vicryl. Steri-Strips were applied. Sterile bandage was applied. Please note, this patient was waiting since 10 a.m. this morning to have her surgery. It was delayed for multiple cases that came in. Surgery was delayed for 9 hours. Akash Hanks MD JDB/sv/do , 10:13 PM , 10:19 PM
[2018-01-03] MEDS: Sodium Chloride 0.9% 2 ML Flush BID IV.FLUSH SCH ×2 (02:59→08:11)
[2018-01-03] MEDS: Sod Chloride 0.9% Inj 1,000 ML IV.CONT SCH (02:59)
[2018-01-03] MEDS ORDERED: Haloperidol Inj 5 MG/ML Ampul IM ONE (07:25)
[2018-01-03] MEDS ORDERED: Haloperidol Inj 5 MG/ML Ampul IM PRN (07:57)
[2018-01-03] MEDS: Lisinopril 10 MG Tablet PO SCH (08:11)
[2018-01-03] MEDS: QUEtiapine 25 MG Tablet PO SCH (08:11)
--- NOTE | 2018-01-03 08:17 | P.PN ---
Subjective Interval history: Follow-up for appendicitis, uncontrolled hypertension, dementia with suicidal/ patient is very agitated this morning. The patient is seen ambulating the hallways without difficulty. She feels she is being held here against her will. She is refusing to be examined. She is refusing vital signs. She is refusing medications. She states she is calling the summer child caregiver. She will not answer any medical questions for me and tells me to get out of the room. Physical Exam Vital signs: Vital Signs 01/02/18 08:34 01/02/18 11:51 01/02/18 12:46 Temperature 98.5 F 97.4 F L Pulse Rate 51 L 55 L Respiratory Rate 18 18 Blood Pressure 180/82 H 193/89 H 170/82 H Pulse Oximetry 98 97 01/02/18 13:44 01/02/18 15:13 01/02/18 15:45 Temperature 97.8 F Pulse Rate 56 L Respiratory Rate 16 Blood Pressure 170/73 H 169/79 H 146/70 H Pulse Oximetry 95 01/02/18 19:59 01/02/18 22:26 01/02/18 22:30 Temperature 98.5 F 98.6 F Pulse Rate 62 72 78 Respiratory Rate 18 12 15 Blood Pressure 125/69 122/65 108/52 L Pulse Oximetry 96 92 L 97 01/02/18 22:45 01/02/18 23:00 01/03/18 03:51 Temperature 98.6 F 98.0 F Pulse Rate 65 56 L 60 Respiratory Rate 14 11 L 17 Blood Pressure 133/63 112/59 L 133/62 Pulse Oximetry 98 97 Intake & Output 01/02/18 01/03/18 01/03/18 18:59 06:59 18:59 Intake Total 300 / 300 1800 / 1800 100 / 100 Output Total 800 / 800 230 / 230 Balance -500 / -500 1570 / 1570 100 / 100 Intake: IV 300 / 300 1300 / 1300 100 / 100 NS Inj 1,000 ML @ 42 mls/hr IV. 1000 / 1000 CONT .[id number] SHAHNAZ Rx#:[id number] Cipro 400 MG/200 ML Inj 400 mg 200 / 200 200 / 200 In 200 ml @ 200 mls/hr IV.SIG Q12H SHAHNAZ Rx#:[id number] Flagyl 500 MG Inj 100 ML @ 100 100 / 100 100 / 100 100 / 100 mls/hr IV.SIG Q8H [facility] Rx#: [id number] Anesthesia Amount 500 / 500 Output: Urine 800 / 800 Estimated Blood Loss 5 / 5 Urine Amount (Catheter) 225 / 225 Straight 225 / 225 Narrative: GENERAL: Well-nourished, well-developed elderly female patient, agitated, refusing to be examined. SKIN: Warm and dry. No obvious rash HEENT: Normocephalic. Atraumatic. Pupils equal and round. CARDIOVASCULAR: Refusing auscultation RESPIRATORY: No accessory muscle use. Refusing auscultation. GASTROINTESTINAL: Refusing evaluation MUSCULOSKELETAL: No obvious deformities. Extremities without clubbing, cyanosis , or edema. NEUROLOGICAL: Awake and alert oriented x3. Motor grossly within normal limits. Moving all extremities spontaneously and ambulating without difficulty. Normal speech. PSYCHIATRIC: Agitated and anxious mood; insight and judgment limited. - Urinary Catheter Management Straight Cath placed during this visit: no Results - Labs CBC & Chem 7: 01/02/18 05:48 01/02/18 05:48 Laboratory Results - last 24 hr 01/02/18 05:48 Total Bilirubin 0.4 Alkaline Phosphatase 67 Total Protein 7.0 - Imaging Abdomen/Pelvis CT 01/01/18 16:35 CONCLUSION: 1. Abnormal appendix characteristic of at least early appendicitis without perforation or abscess. 2. Severe diverticulosis without diverticulitis. - Procedures 01/02/18laparoscopic appendectomy by Dr. Hanks Assessment and Plan - Plan 72-year-old female with a past medical history significant for dementia, hypertension, congestive heart failure, atrial fibrillation and dyslipidemia who was admitted under Guzmán act after she called the police claiming that there was a strange man sleeping in her bed, threatened to shoot the maintenance groundman then kill herself. Additionally patient has complaints of right lower quadrant pain with abnormal appearing appendix on CT. Dementia with behavioral disturbance/Suicidal/homicidal statements: acute on chronic -Rule out toxic/metabolic etiologies for encephalopathy: UDS/etoh neg, UA unremarkable, CBC/CMP WNL -Consult psychiatry, appreciate assistance, recommends admission to inpatient psychiatry when medically clear -We will plan to discharge to med/psych unit to monitor BP and since patient is post surgery Appendicitis: patient with +RLQ abdominal pain and +CT scan -CT abd/pelvis reviewed, shows abnormal appendix characteristic of at least early appendicitis without perforation or abscess, severe diverticulosis without diverticulitis -Given IVF hydration -given IV Cipro and Flagyl in the ED, now antibiotics discontinued s/p appendectomy -IV pain meds prn and antiemetics prn -Consult General Surgery, s/p laparoscopic appendectomy on 01/02 -Diet advanced, patient tolerating well Hx of afib, rate controlled -Unknown home meds, patient claiming she is not on any medications -Heart rate well controlled in the 50s Hypertensive Urgency with Accelerated Hypertension: BP 223/105 -Continue IV Vasotec prn, increased to 2.5mg IV q6h prn -resume home meds once med rec completed, although patient claims she is not on any antihypertensives -give hydralazine prn if no improvement with vasotec -start on lisinopril 10mg bid, although patient refusing and BP improving Dyslipidemia -will resume home meds once med rec completed CHF: chronic, appears euvolemic on exam, not decompensated -monitor closely while on IVF hydration -Continue to monitor volume and respiratory status DVT prophylaxis-bilateral SCD/NATALIE; avoid chemical prophylaxis with procedure Discharge Planning: Discharge patient to med/psych unit Condition on discharge: Stable Heart Healthy Diet as tolerated Ad Rosie activity Rx written: lisinopril, seroquel Follow-up with primary care physician, surgery, and psychiatry
== END 2018-01-03 10:27 ==
LOC: NEPD 15:45 → NEDA 20:09 → INTOOBSV 20:09 → NEPGCP 22:36
PROVIDERS: ADMIT Hospitalist; ATTEND Hospitalist
PROC: LAPAPPY (ICD-10-PCS; 2018-01-02 21:17)

== ENCOUNTER 2018-01-03 10:59 | Inpatient (IN) ==
[2018-01-03] MEDS ORDERED: Bisacodyl 10 MG Supp RECTAL PRN (13:28)
[2018-01-03] MEDS ORDERED: Melatonin 5 MG Tablet PO PRN (13:28)
[2018-01-03] MEDS ORDERED: Aluminum/Magnesium/Simethacone Susp 30 ML UDC PO PRN (13:28)
[2018-01-03] MEDS ORDERED: LORazepam 1 MG Tablet PO PRN (13:28)
[2018-01-03] MEDS: Lisinopril 10 MG Tablet PO SCH (22:18)
--- NOTE | 2018-01-04 08:37 | P.CONIM ---
History of Present Illness Service: [facility] Consult date: 01/04/18 Reason for Consult: medical management Primary Care Provider: UNKNOWN Chief Complaint: abdominal pain History of Present Illness: This is a 72-year-old female with a past medical history significant for dementia, hypertension, congestive heart failure, atrial fibrillation and dyslipidemia who was admitted under Guzmán act after she called the police claiming that there was a strange man sleeping in her bed. Patient claimed that there was a man sleeping in her bed, patient also made suicidal homicidal statements saying that she was going to get a gun and kill her machine maintenance repairer and then kill herself. While in the ED, patient developed complaints of right lower quadrant abdominal pain. CT of the abdomen and pelvis was obtained revealing abnormal appendix characteristic of at least early appendicitis without perforation or abscess and severe diverticulosis without diverticulitis. Patient subsequently had lap appendectomy and was cleared to discharge with surgery standpoint. Patient was then transferred to and admitted to the psychiatry unit for psych cardiac check evaluation and management. Medicine team was consulted for medical management. Patient seen and examined sitting on her bed, Complains about some abdominal pain on the surgical site and left back pain stated likely from positioning in bed. Patient denies any nausea or vomiting, ready to eat her breakfast. Patient was complaining wants to get her right PIV out, as it bothers her. Discussed the patient will wait for the lab results and determine if it is necessary.. Patient also stated that she found someone sitting in his on her bed and could have possibly hurt him. Patient stated she wanted to do something about it, and reported to the police. Patient denies any headache or dizziness, denies any chest pain or shortness of breath, denies any diarrhea or constipation. Patient denies any fever or chills. Nurse denies any acute complaint for the patient. Review of Systems All other systems reviewed negative except as stated in HPI PMFSH - History History Provided By: Patient, Medical Record - Medical History Medical History: Medical History (Last Reviewed 01/04/18 @ 08:41 by FAUSTO Lopez) Atrial fibrillation History of hysterectomy Hypertension Seizures TBI (traumatic brain injury) - Surgical History Surgical History: Surgical History (Last Reviewed 01/04/18 @ 08:41 by FAUSTO Lopez) H/O hand surgery S/P total abdominal hysterectomy - Family History Family History: Family History (Last Reviewed 01/04/18 @ 08:41 by FAUSTO Lopez) Other Family history unobtainable due to patient's condition - Social History I have reviewed the patient's Social History: Yes - Tobacco History Second Hand Smoke Exposure: No Smoking Status: Never smoker - Alcohol History How Often Do You Have a Drink Containing Alcohol: Never - Substance Use History Substance History: No History of Abuse Medications and Allergies Active Medications: Active Medications Acetaminophen (Tylenol) 650 mg PO Q4H PRN PRN Reason: pain 1-10and fever Al Hydrox/Mg Hydrox/Simethicone (Mag-Al Plus Susp Liq) 30 ml PO Q6H PRN PRN Reason: DYSPEPSIA Al Hydroxide/Mg Hydroxide (Milk Of Magnesia Liq) 30 ml PO Q12H PRN PRN Reason: Mild Constipation Bisacodyl (Dulcolax Supp) 10 mg RECTAL DAILY PRN PRN Reason: SEVERE CONSITIPATION Clonidine HCl (Catapres) 0.1 mg PO Q6H PRN PRN Reason: sbop>160, dbp>90 Last Admin: 01/04/18 07:52 Dose: 0.1 mg Lactulose (Lactulose Liq) 30 ml PO DAILY PRN PRN Reason: SEVERE CONSITIPATION Lisinopril (Prinivil) 10 mg PO BID SHAHNAZ Last Admin: 01/03/18 22:18 Dose: 10 mg Lorazepam (Ativan) 0.5 mg PO Q12H PRN PRN Reason: MODERATE TO SEVERE ANXIETY Melatonin (Melatonin) 5 mg PO HS PRN PRN Reason: INSOMNIA Ondansetron HCl (Zofran Odt) 4 mg PO Q6H PRN PRN Reason: NAUSEA Senna/Docusate Sodium (Dolores-Colace) 1 tab PO BID PRN PRN Reason: CONSTIPATION Sennosides (Senokot) 17.2 mg PO Q12H PRN PRN Reason: Moderate Constipation Allergies Allergy/AdvReac Type Severity Reaction Status Date / Time aspirin Allergy Severe Nausea/Vomi Verified 01/01/18 23:41 ting oxycodone Allergy Severe Nausea/Vomi Verified 01/01/18 23:41 ting penicillin G Allergy Severe PASSES OUT Verified 01/01/18 23:41 acetaminophen Allergy Mild HIVES Verified 01/01/18 23:41 codeine Allergy Mild Nausea/Vomi Verified 01/01/18 23:41 ting doxycycline Allergy Mild ITCHY RED Verified 01/01/18 23:41 KNOTS formaldehyde Allergy Mild DIFF.BREATH Verified 01/01/18 23:41 ING minocycline Allergy Mild ITCHY RED Verified 01/01/18 23:41 KNOTS tigecycline Allergy Mild ITCHY RED Verified 01/01/18 23:41 KNOTS tramadol Allergy Mild HIVES Verified 01/01/18 23:41 CHEMICALS Allergy Severe CHLORINE,BLEACH,ACETONE,--ROMERO Uncoded 03/26/03 13:58 IN MOUTH,DIFF.BREATHING Home Medications Medication Instructions Recorded Confirmed Type No Known Home Medications 01/01/18 01/01/18 History Exam Vital signs: Vital Signs 01/03/18 18:20 01/04/18 05:53 Temperature 97.8 F 97.6 F Pulse Rate 71 77 Respiratory Rate 17 16 Blood Pressure 179/81 H 211/99 H Pulse Oximetry 97 94 L Intake & Output 01/03/18 01/04/18 01/04/18 18:59 06:59 18:59 Intake Total 600 / 600 120 / 120 Balance 600 / 600 120 / 120 Intake: Oral 600 / 600 120 / 120 Other: # Voids 1 Narrative: GENERAL: Well-developed, well-nourished, lady, sitting on the side of the bed in no apparent distress SKIN: Warm and dry. HEAD: Atraumatic. Normocephalic. EYES: Pupils equal and round. No scleral icterus. No injection or drainage. ENT: No nasal bleeding or discharge. Mucous membranes pink and moist. NECK: Trachea midline. No JVD. CARDIOVASCULAR: Regular rate and rhythm. RESPIRATORY: No accessory muscle use. Clear to auscultation. Breath sounds equal bilaterally. GASTROINTESTINAL: Abdomen soft, slight tenderness on palpation, nondistended. Hepatic and splenic margins not palpable. Mid abdominal incision/lap site x3 with Steri-Strips, clean dry and intact no redness no drainage MUSCULOSKELETAL: Extremities without clubbing, cyanosis, or edema. No obvious deformities. NEUROLOGICAL: Awake and alert x3. No obvious cranial nerve deficits. Motor grossly within normal limits. Moving all 4 extremities normal speech. PSYCHIATRIC: Pleasant mood and affect; insight and judgment poor Results - Labs CBC & Chem 7: 01/04/18 08:10 01/04/18 08:10 Assessment and Plan - Assessment (1) Hypertension Code(s): I10 - Essential (primary) hypertension Status: Acute (2) Acute appendicitis Code(s): K35.80 - Unspecified acute appendicitis Status: Acute (3) Unspecified psychosis Code(s): F29 - Unspecified psychosis not due to a substance or known physiological condition Status: Acute (4) Atrial fibrillation Code(s): I48.91 - Unspecified atrial fibrillation Status: Acute - Plan This is a 72-year-old female with a past medical history significant for dementia, hypertension, congestive heart failure, atrial fibrillation and dyslipidemia who was admitted under Guzmán act after she called the police claiming that there was a strange man sleeping in her bed, threatened to shoot the machine maintenance repairer then kill herself. Patient also had complaints of right lower quadrant pain with abnormal appearing appendix on CT. Patient had undergone laparoscopic appendectomy on 1030 and was cleared to discharge with the surgeon. Patient was admitted to the psychiatric unit for psychiatric evaluation and management. Medicine team was consulted for medical management. Hypertensive Urgency BP on admission 179/81, this morning was 211/99 -start on IV Vasotec prn, increased to 2.5mg IV q6h prn, nurse reported patient refused her PO medication -continue clonidine prn if patient able to take PO -continue lisinopril 10mg bid, although patient refusing -monitor BP Hx of afib/ CHF/HLD Hx Seizure/TBI Heart Rate controlled, 70's -No CP, No SOB, no recent seizure activity -Unknown home meds, discussed with nursing to obtain med list and complete the med rec -monitor VS Appendicitis s/p laparoscopic appendectomy on 01/02 s/p IV Cipro and Flagyl in the ED, now antibiotics discontinued s/p appendectomy -Diet advanced, patient tolerating well - add tylenol for prn pain medications -add zofran prn for nausea -monitor CBC, BMP Dementia with behavioral disturbance Suicidal/homicidal statements Acute on chronic -Ruled out toxic/metabolic etiologies for encephalopathy from the ED: UDS/etoh neg, UA unremarkable, CBC/CMP WNL -Management with psychiatry team DVT prophylaxis-bilateral SCD/NATALIE; avoid chemical prophylaxis with procedure Code Status: Full code Discussed Condition With: Patient, nurse (2) Acute appendicitis Qualifiers: Acute appendicitis type: with localized peritonitis Appendicitis perforation presence: without perforation Appendicitis abscess presence: without abscess
[2018-01-04 08:54] LABS: Baso % (Auto) 0.3 % (0.0-2.0); Eos # (Auto) 0.1 th/mm3 (0.0-0.4); Eos % (Auto) 1.1 % (0.0-4.0); Hematocrit 37.8 % (35.0-46.0); Lymph # (Auto) 1.3 th/mm3 (1.0-4.8); Lymph % (Auto) 22.3 % (9.0-44.0); Mean Corpuscular HGB Conc 34.3 % (32.0-36.0); Mean Corpuscular Hemoglobin 30.2 pg (27.0-34.0); Mean Platelet Volume 8.5 fL (7.0-11.0); Mono # (Auto) 0.3 th/mm3 (0.0-0.9); Mono % (Auto) 5.6 % (0.0-8.0); Neut # (Auto) 4.3 th/mm3 (1.8-7.7); Neut % (Auto) 70.7 % (16.0-70.0); Platelet Count 256 th/mm3 (150-450); Red Cell Distribution Width 13.6 % (11.6-17.2)
--- NOTE | 2018-01-04 08:56 | P.PNGS ---
Subjective Interval history: DAILY PROGRESS NOTE FOR SURGICAL ATTENDING, DR. JOHN AWAN Resting in bed Would like a toothbrush Wants to go home Physical Exam Vital signs: Vital Signs 01/03/18 18:20 01/04/18 05:53 Temperature 97.8 F 97.6 F Pulse Rate 71 77 Respiratory Rate 17 16 Blood Pressure 179/81 H 211/99 H Pulse Oximetry 97 94 L Intake & Output 01/03/18 01/04/18 01/04/18 18:59 06:59 18:59 Intake Total 600 / 600 120 / 120 Balance 600 / 600 120 / 120 Intake: Oral 600 / 600 120 / 120 Other: # Voids 1 Narrative: Alert and awake Abd: soft; minimally tender to palpation; incisions c/d/i with Steri Strips in place Results - Labs 01/04/18 08:10 01/04/18 08:10 Assessment and Plan - Assessment (1) Status post appendectomy, follow-up exam Code(s): Z09 - Encounter for follow-up examination after completed treatment for conditions other than malignant neoplasm Status: Acute - Plan 72 year old female admitted for psychosis; Guzmán Act; POD2 lap appy -Tolerating regular diet -Pain controlled -Okay to shower---pat incisions dry -Avoid heavy pushing/pulling/lifting -GS will sign off; Please call with any questions -If patient is still in the hospital middle of next week ---please call me and I will do post op appointment in the hospital - Attending Attestation NOTE FOR SURGICAL ATTENDING, DR. JOHN AWAN I agree with above assessment and plan. The exam, history, and the medical decision-making described in the above note were completed with the assistance of the mid-level provider. I reviewed and agree with the findings presented. I attest that I had a [id number] encounter with the patient on the same day, and personally performed and documented my assessment and findings in the medical record. The following services were provided during this hospital visit: Chart data review, vital sign assessments/reviewing monitor data Review of consultations notes if present. Medication orders/review and/or management Ordering and/or reviewing lab tests Ordering and/or interpreting/reviewing x-rays and/or diagnostic studies Care of the patient and discussion of the patient with the care team Documentation time To help prompt me to consider important information that might be impacting today's encounter and assessment, Information from prior notes written by myself or my colleagues may have been "brought forward/copy and pasted" into today's note.
[2018-01-04 09:01] LABS: Albumin 4.1 g/dL (3.4-5.0); Anion Gap 10 meq/L (5-15); Aspartate Aminotransferase 10 U/L (15-37); Blood Urea Nitrogen 9 mg/dL (7-18); Calcium 8.9 mg/dL (8.5-10.1); Carbon Dioxide 27.9 meq/L (21.0-32.0); Chloride 105 meq/L (98-107); Glomerular Filtration Rate 88 mL/min (>89); Glucose,Random 120 mg/dL (74-106); Magnesium 2.4 mg/dL (1.5-2.5); Potassium 3.7 meq/L (3.5-5.1); Sodium 143 meq/L (136-145)
[2018-01-04 09:02] LABS: Cholesterol 167 mg/dL (120-200)
[2018-01-04 09:07] LABS: Alanine Aminotransferase 24 U/L (10-53); Alkaline Phosphatase 72 U/L (45-117); Chol/HDL Ratio 2.91 Ratio; HDL Cholesterol 57.2 mg/dL (40.0-60.0); LDL Cholesterol,Calculated 88 mg/dL (0-99); Total Protein 7.4 g/dL (6.4-8.2); Triglycerides 107 mg/dL (42-150)
[2018-01-04] MEDS: Lisinopril 10 MG Tablet PO SCH ×2 (10:27→21:17)
[2018-01-04 10:51] LABS: Hemoglobin A1c 5.4 % (4.3-6.0)
[2018-01-04] MEDS: QUEtiapine 25 MG Tablet PO SCH ×2 (13:27→21:17)
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
--- NOTE | 2018-01-04 19:22 | ECG ---
Date Performed: 01/04/2018 Time Performed: 07:12:39 PTAGE: 72 years EKG: Sinus rhythm Since the previous tracing, no significant change noted NORMAL ECG PREVIOUS TRACING : 01/01/2018 16.55 DOCTOR: Ronn Yost Interpretating Date/Time 01/04/2018 19:21:07
[2018-01-05] MEDS: Lisinopril 10 MG Tablet PO SCH ×2 (09:21→20:20)
[2018-01-05] MEDS: QUEtiapine 25 MG Tablet PO SCH ×2 (09:21→20:20)
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
[2018-01-05] MEDS: Nystatin 100,000 UNITS/GM Powder 15 GM Bottle TOPICAL SCH ×2 (12:22→20:24)
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
[2018-01-05] MEDS: Senna/Docusate Sodium 8.6/50 MG Tablet PO PRN ×2 (18:08→18:39)
[2018-01-05] MEDS: Acetaminophen 325 MG Tablet PO PRN (18:08)
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
[2018-01-06] MEDS: QUEtiapine 25 MG Tablet PO SCH ×2 (09:33→21:50)
[2018-01-06] MEDS: Nystatin 100,000 UNITS/GM Powder 15 GM Bottle TOPICAL SCH ×2 (09:33→21:11)
[2018-01-06] MEDS: Senna/Docusate Sodium 8.6/50 MG Tablet PO PRN (09:33)
[2018-01-06] MEDS: Lisinopril 10 MG Tablet PO SCH (09:33)
[2018-01-06] MEDS: Acetaminophen 325 MG Tablet PO PRN (09:34)
--- NOTE | 2018-01-06 13:41 | P.PNPSY ---
Subjective Remarks: Patient was seen and case discussed with nursing. Patient remains focused on discharge. Today she appears less psychotic and less internally preoccupied. She is pleasant cooperative and compliant with medications. Mental Status Examination Appearance: Appropriate Consciousness: Alert Orientation: Person, Place, Date/Time Motor Activity: Normal gait Speech: Unremarkable Language: Adequate Fund of Knowledge: Inadequate Attention and Concentration: Adequate Memory: Impaired Mood: Anxious Affect: Anxious Thought Process & Associations: Tangential Hallucination Type: None Delusion Type: None Suicidal Ideation: No (denies at this time but unreliable to contract for safety ) Suicidal Plan: No Suicidal Intention: No Homicidal Ideation: No (denies at this time but unreliable to contract for safety) Homicidal Plan: No Homicidal Intention: No Insight: Poor Judgment: Poor Assessment and Plan - Assessment (1) Unspecified psychosis Code(s): F29 - Unspecified psychosis not due to a substance or known physiological condition Status: Acute - Plan Plan: Continue current treatment plan Justification for Continued Inpatient Stay: Patient would decompensate in a less restrictive setting
[2018-01-06] MEDS: Lisinopril 20 MG Tablet PO SCH (21:11)
[2018-01-07] MEDS: Nystatin 100,000 UNITS/GM Powder 15 GM Bottle TOPICAL SCH ×2 (05:30→08:00)
[2018-01-07] MEDS: Lisinopril 20 MG Tablet PO SCH ×2 (08:00→21:00)
[2018-01-07] MEDS: QUEtiapine 25 MG Tablet PO SCH ×2 (08:00→21:00)
--- NOTE | 2018-01-07 08:23 | P.PNIM ---
Subjective Interval history: Follow-up post appendectomy, dementia, hypertension, congestive heart failure, atrial fibrillation, dyslipidemia and psychosis. Patient stated wants to go home Stated Eyes feels better and getting her eye drops c/o Slight right lower abdominal pain, but does not need any pain medication, denies any nausea or vomiting, denies any diarrhea or constipation Stated will take her medications Deneis any fever or chills Physical Exam Vital signs: Vital Signs 01/06/18 11:01 01/06/18 11:30 01/06/18 18:43 Temperature 97.6 F Pulse Rate 91 H 77 85 Respiratory Rate 16 Blood Pressure 147/78 H 143/79 H Pulse Oximetry 96 01/07/18 07:45 Temperature 99.2 F Pulse Rate 72 Respiratory Rate 16 Blood Pressure 167/81 H Pulse Oximetry 98 Intake & Output 01/06/18 01/07/18 01/07/18 18:59 06:59 18:59 Intake Total 600 / 600 240 / 240 Balance 600 / 600 240 / 240 Intake: Oral 600 / 600 240 / 240 Other: # Voids 3 1 Date of Last Bowel Movement 01/05/18 Narrative: GENERAL: Well-developed, well-nourished, lady, sitting on the side of the bed in no apparent distress SKIN: Warm and dry. HEAD: Atraumatic. Normocephalic. EYES: Pupils equal and round. No scleral icterus. right eye lid some edema, pupils no redness, slight dry drainaige ENT: No nasal bleeding or discharge. Mucous membranes pink and moist. NECK: Trachea midline. No JVD. CARDIOVASCULAR: Regular rate and rhythm. RESPIRATORY: No accessory muscle use. Clear to auscultation. Breath sounds equal bilaterally. GASTROINTESTINAL: Abdomen soft, slight tenderness on palpation, nondistended. Hepatic and splenic margins not palpable. Mid abdominal incision/lap site x3 with Steri-Strips, clean dry and intact no redness no drainage. MUSCULOSKELETAL: Extremities without clubbing, cyanosis, or edema. No obvious deformities. NEUROLOGICAL: Awake and alert x3. No obvious cranial nerve deficits. Motor grossly within normal limits. Moving all 4 extremities normal speech. PSYCHIATRIC: Pleasant mood and affect; insight and judgment poor Results - Labs CBC & Chem 7: 01/04/18 08:10 01/04/18 08:10 Assessment and Plan - Assessment (1) Hypertension Code(s): I10 - Essential (primary) hypertension Status: Acute (2) Acute appendicitis Code(s): K35.80 - Unspecified acute appendicitis Status: Acute (3) Unspecified psychosis Code(s): F29 - Unspecified psychosis not due to a substance or known physiological condition Status: Acute (4) Atrial fibrillation Code(s): I48.91 - Unspecified atrial fibrillation Status: Acute - Plan This is a 72-year-old female with a past medical history significant for dementia, hypertension, congestive heart failure, atrial fibrillation and dyslipidemia who was admitted under Guzmán act after she called the police claiming that there was a strange man sleeping in her bed, threatened to shoot the maintenance shop welder then kill herself. Patient also had complaints of right lower quadrant pain with abnormal appearing appendix on CT. Patient had undergone laparoscopic appendectomy on 1030 and was cleared to discharge with the surgeon. Patient was admitted to the psychiatric unit for psychiatric evaluation and management. Medicine team was consulted for medical management. Hypertensive Urgency BP on admission 179/81, this morning was 157/84 -Per nurse report patient refusing to take medications, and unable to administer IV Vasotec. -Discontinue IV Vasotec prn, due to unable to administer on this floor -continue clonidine patch, Change clonidine p.o. to clonidine patch as patient refusing to take oral medications -continue lisinopril 10mg bid, although patient sometimes refusing, patient stated she will take it today -monitor BP, encourage to take po medications -patient still refusing medications and BP checks Hx of afib/ CHF/HLD Hx Seizure/TBI Heart Rate controlled, 70's -No CP, No SOB, no recent seizure activity -Unknown home meds, discussed with nursing to obtain med list and complete the med rec -monitor VS Appendicitis s/p laparoscopic appendectomy on 01/02 s/p IV Cipro and Flagyl in the ED, now antibiotics discontinued s/p appendectomy -Incision healing well -Diet advanced, patient tolerating well - add tylenol for prn pain medications -add zofran prn for nausea -monitor CBC, BMP -incision site care daily, discussed with nurse Dementia with behavioral disturbance Suicidal/homicidal statements Acute on chronic -Ruled out toxic/metabolic etiologies for encephalopathy from the ED: UDS/etoh neg, UA unremarkable, CBC/CMP WNL -Management with psychiatry team Right Eye discomfort/eyelid edema Likely Eye dryness no redness, no purulent drainaige -may have warm compress on the eyelid QID x 3 days, q 30 mins at a time -start tears eye drops Groin rash/itchiness -clean groin area daily and prn -apply nystatin cream DVT prophylaxis-bilateral SCD/NATALIE; avoid chemical prophylaxis with procedure Code Status: full code Discussed Condition With: patient and nurse (2) Acute appendicitis Qualifiers: Acute appendicitis type: with localized peritonitis Appendicitis perforation presence: without perforation Appendicitis abscess presence: without abscess
--- NOTE | 2018-01-07 15:56 | P.PNPSY ---
Subjective Remarks: Patient seen for follow-up, chart reviewed. Discussion with nursing staff reported that patient severity over the weekend was noted to be very irritable, but compliant with medications but continues to be noted to be very paranoid, did report having history of seizures. Patient was found somewhat irritable this morning but was able to comply with medications but noted B, cooperative for interview with proposal writer along with nurse and counselor and medical student. Patient states she is feeling better more hopeful that her weekend went "okay" reporting sleeping well with no difficulty with eating or drinking. Patient states that she does have a history of seizure disorder in the past after her TBI is stabilized on medication for some time but discontinued them with unknown explanation. Patient states the last time she had a seizure was 9 months ago where she was walking in a park and passed out and reports having had episodes of "blacking out" prior to this as well. Patient at this time denies any suicidal homicidal ideation but continues to have paranoid delusion and persecutory delusion of the "electrical maintenance man" who she stayed also works for her internet cafe manager who he states also is ordering this person after her. Review of Systems All other systems reviewed negative except as stated in HPI Mental Status Examination Appearance: Appropriate Consciousness: Alert Orientation: Person, Place, Date/Time Motor Activity: Normal gait Speech: Unremarkable Language: Adequate Fund of Knowledge: Inadequate Attention and Concentration: Adequate Memory: Impaired Mood: Anxious Affect: Anxious Thought Process & Associations: Tangential Thought Content: Preoccupations, Delusional Hallucination Type: None Delusion Type: Paranoid, Other (Persecutory) Suicidal Ideation: No (denies at this time but unreliable to contract for safety ) Suicidal Plan: No Suicidal Intention: No Homicidal Ideation: No (denies at this time but unreliable to contract for safety) Homicidal Plan: No Homicidal Intention: No Insight: Poor Judgment: Poor Assessment and Plan - Assessment (1) Unspecified psychosis Code(s): F29 - Unspecified psychosis not due to a substance or known physiological condition Status: Acute - Plan Plan: She continues to have paranoid and persecutory delusions noted this electrical maintenance man in her apartment although collateral information obtained by the treatment team stated that there was no electrical maintenance man by the name of Onesimo as reported by the patient. We will continue to titrate quetiapine to 50 mg p.o. twice daily for psychosis. We will order EEG and request neurology consults for evaluation of possible seizure disorder. Patient signed an ROR at this morning and agreed to rescind for continued treatment. Justification for Continued Inpatient Stay: At risk of further decompensation at lower level care.
--- NOTE | 2018-01-07 18:42 | MB ---
cc: Deepak Vidal MD, PhD DATE: 01/07/2018 REASON FOR CONSULTATION: History of traumatic brain injury and seizures. HISTORY OF PRESENT ILLNESS: Ms. Hudson is a very nice 72-year-old woman who recently underwent appendectomy and is now in the psychiatry breaux because of delusional thoughts where she thought somebody else was in her bedroom with her. She states she has a history of a head injury in 1985 after a fall. There was no hemorrhage, no neurosurgical evaluation, but after that this, she apparently developed seizures, both passing out episodes and also "petit mal seizures." She states during these she becomes confused, she wanders about and is not aware of her surroundings. They occur very infrequently. The last one was about 9 months ago. They may occur every 10-12 months. In the past, she was on some type of seizure medicine. She does not recall the name, but she had side effects. PAST MEDICAL HISTORY: History of dementia, hypertension, congestive heart failure, atrial fibrillation, dyslipidemia, diverticulosis, recent surgery for appendicitis. MEDICATIONS: 1. Tylenol. 2. Magnesium hydroxide. 3. Artificial tears. 4. Dulcolax. 5. Catapres. 6. Benadryl p.r.n. 7. Lactulose. 8. Prinivil 20 mg b.i.d. 9. Ativan p.r.n. 10. Nystatin. 11. Zofran p.r.n. 12. Seroquel 50 mg b.i.d. 13. Dolores-Colace. 14. Senokot. NEUROLOGICAL EXAMINATION: VITAL SIGNS: Her blood pressure is 167/81, pulse 72, respirations 16, temperature 99 degrees. HIGHER CORTICAL FUNCTION: She is alert. She is oriented x 3. Speech is fluent. She follows commands. CRANIAL NERVES: Intact. MOTOR: Normal strength and tone. Normal machine cementer and folder. There is no drift. Fine motor skills within normal limits. Reflexes are symmetric. DIAGNOSTIC DATA: EEG is pending. IMPRESSION: History of traumatic brain injury with what appears to be probable complex partial seizures based on her history. RECOMMENDATIONS: I did discuss and recommended starting an anticonvulsant, but she does not wish to start this at the present time. She is agreeable for evaluation. I have recommended we review the electroencephalogram. I would like to get a brain MRI for further evaluation. Deepak Vidal MD, PhD NITZA/ghassan , 05:37 PM , 05:44 PM
[2018-01-07] MEDS: [UNRECOGNIZED DRUG - OTHER] RIGHT EYE SCH ×2 (19:44→21:00)
[2018-01-07] MEDS: NEOMYCIN RIGHT EYE SCH ×2 (19:44→21:00)
[2018-01-07] MEDS: DEXAMETHASONE RIGHT EYE SCH ×2 (19:44→21:00)
[2018-01-07] MEDS ORDERED: Gadobutrol PF 7.5 MMOL/7.5 ML Vial (for RAD) IV.SIG ONE (20:14)
--- NOTE | 2018-01-07 20:35 | MR ---
EXAM DATE: 01/07/2018 8:28 PM EST AGE/SEX: 72 years / Female INDICATIONS: Epilepsy. History of seizures and some altered mental status. CLINICAL DATA: This is the patient's initial encounter. Patient reports that signs and symptoms have been present for 1 day and indicates a pain score of 7/10. MEDICAL/SURGICAL HISTORY: Seizures. Hypertension. Congestive heart failure. Skin cancer. Ap pendectomy. Hysterectomy. COMPARISON: [facility], CT BRAIN W/O CONTRAST, 02/20/2015. . TECHNIQUE: Multiplanar, multisequence examination of the brain was performed without and with 7 ml Ga davist (gadobutrol) contrast as a single exam dose. FINDINGS: Cerebrum: The ventricles are normal for age. No evidence of midline shift, mass lesion, acute hemor rhage or acute infarction. Numerous small, widely scattered but mostly subcortical and brainstem foc i of punctate hemosiderin deposition demonstrated of the brain and cerebellum. No extraaxial fluid co llections are seen. The pituitary gland and suprasellar cistern are normal in configuration. White Matter: Moderate to severe chronic FLAIR signal abnormality seen in the white matter of both c erebral hemispheres. Posterior Fossa: The cerebellum and brainstem are intact. The 4th ventricle is midline. The cerebel lopontine angle is unremarkable. The cerebellar tonsils are normal in position. Diffusion Imaging: Mucoperiosteal thickening and small mucous retention cysts seen of the ethmoid an d maxillary air cells. Extracranial: The visualized portions of the orbits and paranasal sinuses are unremarkable. Post Contrast: No abnormal areas of parenchymal or dural enhancement. No evidence of blood-brain ba rrier breakdown. CONCLUSION: 1. No acute bleed, acute infarct or other acute intracranial abnormality demonstrated. 2. Chronic white matter deposition and chronic widely scattered petechial hemorrhages. 3. Chronic sinusitis. Electronically signed by: Cristopher Lundberg MD 01/07/2018 8:34 PM EST
--- NOTE | 2018-01-08 08:12 | P.PNIM ---
Subjective Interval history: Follow-up post appendectomy, dementia, hypertension, congestive heart failure, atrial fibrillation, dyslipidemia and psychosis. Pt sitting in the bed, eating breakfast, denies any abdominal pain. nausea or vomiting. Denies any diarrhea or constipation. pt c/o eyes watery and runny nose pt denies any fever or chill Nurse denies any acute concern Physical Exam Vital signs: Vital Signs 01/07/18 17:44 01/08/18 05:37 Temperature 97.4 F L 98.2 F Pulse Rate 58 L 62 Respiratory Rate 15 18 Blood Pressure 123/60 162/76 H Pulse Oximetry 97 97 Intake & Output 01/07/18 01/08/18 01/08/18 18:59 06:59 18:59 Intake Total 2160 / 2160 1060 / 1060 Balance 2160 / 2160 1060 / 1060 Intake: Oral 2160 / 2160 1060 / 1060 Other: # Voids 2 Narrative: GENERAL: Well-developed, well-nourished, lady, sitting on the side of the bed in no apparent distress SKIN: Warm and dry. HEAD: Atraumatic. Normocephalic. EYES: Pupils equal and round. No scleral icterus. right eye lid some edema, pupils no redness, bilateral eyes watery clear drainage ENT: No nasal bleeding or discharge. Mucous membranes pink and moist. NECK: Trachea midline. No JVD. CARDIOVASCULAR: Regular rate and rhythm. RESPIRATORY: No accessory muscle use. Clear to auscultation. Breath sounds equal bilaterally. GASTROINTESTINAL: Abdomen soft, slight tenderness on palpation, nondistended. Hepatic and splenic margins not palpable. Mid abdominal incision/lap site x3 with Steri-Strips, clean dry and intact no redness no drainage. MUSCULOSKELETAL: Extremities without clubbing, cyanosis, or edema. No obvious deformities. NEUROLOGICAL: Awake and alert x3. No obvious cranial nerve deficits. Motor grossly within normal limits. Moving all 4 extremities normal speech. PSYCHIATRIC: Pleasant mood and affect; insight and judgment poor Results - Labs CBC & Chem 7: 01/04/18 08:10 01/04/18 08:10 - Imaging Impressions Head MRI 01/07/18 00:00 CONCLUSION: 1. No acute bleed, acute infarct or other acute intracranial abnormality demonstrated. 2. Chronic white matter deposition and chronic widely scattered petechial hemorrhages. 3. Chronic sinusitis. Assessment and Plan - Assessment (1) Hypertension Code(s): I10 - Essential (primary) hypertension Status: Acute (2) Acute appendicitis Code(s): K35.80 - Unspecified acute appendicitis Status: Acute (3) Unspecified psychosis Code(s): F29 - Unspecified psychosis not due to a substance or known physiological condition Status: Acute (4) Atrial fibrillation Code(s): I48.91 - Unspecified atrial fibrillation Status: Acute - Plan This is a 72-year-old female with a past medical history significant for dementia, hypertension, congestive heart failure, atrial fibrillation and dyslipidemia who was admitted under Guzmán act after she called the police claiming that there was a strange man sleeping in her bed, threatened to shoot the transportation maintenance operator then kill herself. Patient also had complaints of right lower quadrant pain with abnormal appearing appendix on CT. Patient had undergone laparoscopic appendectomy on 1030 and was cleared to discharge with the surgeon. Patient was admitted to the psychiatric unit for psychiatric evaluation and management. Medicine team was consulted for medical management. Hypertensive Urgency BP on admission 179/81, improving 120/63 last night -Per nurse report patient refusing to take medications, and unable to administer IV Vasotec. -Discontinue IV Vasotec prn, due to unable to administer on this floor -continue clonidine patch, Change clonidine p.o. to clonidine patch as patient refusing to take oral medications -continue lisinopril 10mg bid, although patient sometimes refusing, patient stated she will take it today -monitor BP, encourage to take po medications -patient still refusing medications and BP checks, nurse reported complying with medications now Hx of afib/ CHF/HLD Hx Seizure/TBI Heart Rate controlled, 70's -No CP, No SOB, no recent seizure activity -Unknown home meds, discussed with nursing to obtain med list and complete the med rec -monitor VS Appendicitis s/p laparoscopic appendectomy on 01/02 s/p IV Cipro and Flagyl in the ED, now antibiotics discontinued s/p appendectomy -Incision healing well, incision site clean, dry and intact, sno signs of infection -Diet advanced, patient tolerating well - continue tylenol for prn pain medications -continue zofran prn for nausea -monitor CBC, BMP -incision care daily, discussed with nurse Dementia with behavioral disturbance Suicidal/homicidal statements Acute on chronic -Ruled out toxic/metabolic etiologies for encephalopathy from the ED: UDS/etoh neg, UA unremarkable, CBC/CMP WNL -Management with psychiatry team Allergic rhinitis Right Eye discomfort/eyelid edema Likely Eye dryness/related to allergic rhinitis no redness, no purulent drainaige, increasing clear drainage and irritation -no fever or chills -may have warm compress on the eyelid QID x 3 days, q 30 mins at a time -tears eye drops prn -add maxitrol ophthalmic and cetirizine -monitor response Groin rash/itchiness -clean groin area daily and prn -apply nystatin cream -improving DVT prophylaxis-bilateral SCD/NATALIE; avoid chemical prophylaxis with procedure Code Status: full code Discussed Condition With: patient and nurse (2) Acute appendicitis Qualifiers: Acute appendicitis type: with localized peritonitis Appendicitis perforation presence: without perforation Appendicitis abscess presence: without abscess
[2018-01-08] MEDS: QUEtiapine 25 MG Tablet PO SCH ×2 (09:18→21:21)
[2018-01-08] MEDS: Lisinopril 20 MG Tablet PO SCH ×2 (09:18→21:21)
[2018-01-08] MEDS: Artificial Tears Opth Drops 15 ML Bottle EACH EYE PRN (09:18)
[2018-01-08] MEDS: DEXAMETHASONE RIGHT EYE SCH ×4 (09:19→21:23)
[2018-01-08] MEDS: [UNRECOGNIZED DRUG - OTHER] RIGHT EYE SCH ×4 (09:19→21:23)
[2018-01-08] MEDS: NEOMYCIN RIGHT EYE SCH ×4 (09:19→21:23)
[2018-01-08] MEDS: Nystatin Liq 500,000 UNIT/5 ML UDC SWISH-SWAL SCH ×4 (11:33→21:21)
--- NOTE | 2018-01-08 15:14 | MG ---
cc: Deepak Vidal MD, PhD DATE OF STUDY: 01/07/2018 TEST NUMBER: [id number] TECHNIQUE: This is a 17-channel EEG DESCRIPTION: Background rhythm reveals generalized slowing with low amplitude. The slowing is mainly in the delta and theta frequencies. Amplitude is on the range of 2-5 microvolts. There are no lateralizing features. No epileptiform discharges. Photic stimulation does not elicit a driving response. INTERPRETATION: Abnormal study consistent with a diffuse encephalopathy. Deepak Vidal MD, PhD NITZA/ , 02:50 PM , 02:56 PM
--- NOTE | 2018-01-08 16:09 | P.PNPSY ---
Subjective Remarks: Patient seen for follow up; chart reviewed. Discussion with nursing staff reported patient was erratic with staff, noted with paranoia accusing of staff laughing at her, had MRI. Patient was found sitting on hospital bed noted to be calm and cooperative. She states having been seen by the neurologist yesterday which she did not recall the recommendation of starting anticonvulsant but agrees to recommendation now. She recalls having been treated for seizures in the past which she had adverse drug reaction which she stopped the medication. She states her mood as "happy", reports having some constipation. When recalling her delusion of the "maintenance instructor" she sttes "not worried about it", she denies any suicidal or homicidal ideation. She continues with some paranoia toward the superintendant of her apartment and that he/she is in cahoots with the "maintenance instructor". But recurrence of the intrusion of the alleged maintenance instructor, she states "it may or may not happen" . Review of Systems All other systems reviewed negative except as stated in HPI Mental Status Examination Appearance: Appropriate Consciousness: Alert Orientation: Person, Place, Date/Time Motor Activity: Normal gait Speech: Unremarkable Language: Adequate Fund of Knowledge: Inadequate Attention and Concentration: Adequate Memory: Impaired Mood: Good Affect: Appropriate Thought Process & Associations: Tangential Thought Content: Delusional Hallucination Type: None Delusion Type: Paranoid, Other (Persecutory) Suicidal Ideation: No Suicidal Plan: No Suicidal Intention: No Homicidal Ideation: No Homicidal Plan: No Homicidal Intention: No Insight: Poor Judgment: Poor Assessment and Plan - Assessment (1) Unspecified psychosis Code(s): F29 - Unspecified psychosis not due to a substance or known physiological condition Status: Acute - Plan Plan: Patient continues with bizarre delusions the "maintenance instructor" if explored but does not seem to be worried of recurrence of. We will continue current treatment. We will continue to search for collateral formation from patient's grandson to involve family and safe discharge planning. We will continue to monitor mood and behavior. Recent MRI showed only chronic changes no acute pathology noted. Discharge planning in progress. Justification for Continued Inpatient Stay: At risk of further decompensation at lower level care.
[2018-01-09] MEDS ORDERED: Haloperidol Inj 5 MG/ML Ampul ONE (08:36)
--- NOTE | 2018-01-09 08:53 | P.PNIM ---
Subjective Interval history: Follow-up post appendectomy, dementia, hypertension, congestive heart failure, atrial fibrillation, dyslipidemia and psychosis. Patent patient seen and examined sitting on the side of the bed eating breakfast , patient denies any abdominal pain, nausea, or vomiting. Patient complained about the rash in his back and bottom. Patient stated eyes feeling better not watery or itchy anymore. Patient stated the cream is working. Patient denies any headache or dizziness, denies any chest pain or shortness of breath, denies any fever or chills. Nurse reported no acute concern stated taking in more compliant with medications this time. Physical Exam Vital signs: Vital Signs 01/08/18 17:58 01/09/18 05:35 Temperature 97.9 F 98.1 F Pulse Rate 65 67 Respiratory Rate 18 16 Blood Pressure 146/85 H 147/82 H Pulse Oximetry 98 95 Intake & Output 01/08/18 01/09/18 01/09/18 18:59 06:59 18:59 Intake Total 720 / 720 480 / 480 Balance 720 / 720 480 / 480 Intake: Oral 720 / 720 480 / 480 Other: # Voids 2 1 Date of Last Bowel Movement 01/05/18 01/05/18 Narrative: GENERAL: Well-developed, well-nourished, lady, sitting on the side of the bed in no apparent distress SKIN: Warm and dry. HEAD: Atraumatic. Normocephalic. EYES: Pupils equal and round. No scleral icterus. right eye lid some edema, pupils no redness, bilateral eyes watery clear drainage ENT: No nasal bleeding or discharge. Mucous membranes pink and moist. NECK: Trachea midline. No JVD. CARDIOVASCULAR: Regular rate and rhythm. RESPIRATORY: No accessory muscle use. Clear to auscultation. Breath sounds equal bilaterally. GASTROINTESTINAL: Abdomen soft, slight tenderness on palpation, nondistended. Hepatic and splenic margins not palpable. Mid abdominal incision/lap site x3 with Steri-Strips, clean dry and intact no redness no drainage. MUSCULOSKELETAL: Extremities without clubbing, cyanosis, or edema. No obvious deformities. NEUROLOGICAL: Awake and alert x3. No obvious cranial nerve deficits. Motor grossly within normal limits. Moving all 4 extremities normal speech. PSYCHIATRIC: Pleasant mood and affect; insight and judgment poor Results - Labs CBC & Chem 7: 01/04/18 08:10 01/04/18 08:10 Assessment and Plan - Assessment (1) Hypertension Code(s): I10 - Essential (primary) hypertension Status: Acute (2) Acute appendicitis Code(s): K35.80 - Unspecified acute appendicitis Status: Acute (3) Unspecified psychosis Code(s): F29 - Unspecified psychosis not due to a substance or known physiological condition Status: Acute (4) Atrial fibrillation Code(s): I48.91 - Unspecified atrial fibrillation Status: Acute - Plan This is a 72-year-old female with a past medical history significant for dementia, hypertension, congestive heart failure, atrial fibrillation and dyslipidemia who was admitted under Guzmán act after she called the police claiming that there was a strange man sleeping in her bed, threatened to shoot the janitorial maintenance worker then kill herself. Patient also had complaints of right lower quadrant pain with abnormal appearing appendix on CT. Patient had undergone laparoscopic appendectomy on 1030 and was cleared to discharge with the surgeon. Patient was admitted to the psychiatric unit for psychiatric evaluation and management. Medicine team was consulted for medical management. Hypertensive Urgency With history of hypertension BP on admission 179/81, improving recent blood pressures 146/85, 147/82 this morning -Per nurse report patient refusing to take medications, and unable to administer IV Vasotec. -Discontinue IV Vasotec prn, due to unable to administer on this floor -continue clonidine patch, Change clonidine p.o. to clonidine patch as patient refusing to take oral medications -continue lisinopril 10mg bid, although patient sometimes refused -monitor BP, encourage to take po medications -patient still refusing medications and BP checks, nurse reported complying with medications now Hx of afib/ CHF/HLD Hx Seizure/TBI Heart Rate controlled, 70's -No CP, No SOB, no recent seizure activity -Unknown home meds, discussed with nursing to obtain med list and complete the med rec -monitor VS Appendicitis s/p laparoscopic appendectomy on 01/02 s/p IV Cipro and Flagyl in the ED, now antibiotics discontinued s/p appendectomy -Incision healing well, incision site clean, dry and intact, no signs of infection -Diet advanced, patient tolerating well - continue tylenol for prn pain medications -continue zofran prn for nausea -monitor CBC, BMP -incision care daily, discussed with nurse Dementia with behavioral disturbance Suicidal/homicidal statements Acute on chronic -Ruled out toxic/metabolic etiologies for encephalopathy from the ED: UDS/etoh neg, UA unremarkable, CBC/CMP WNL -Management with psychiatry team Allergic rhinitis Right Eye discomfort/eyelid edema Likely Eye dryness/related to allergic rhinitis no redness, no purulent drainaige, increasing clear drainage and irritation -no fever or chills -may have warm compress on the eyelid QID x 3 days, q 30 mins at a time -tears eye drops prn -add maxitrol ophthalmic and cetirizine -Improving symptoms monitor response Groin rash/itchiness -clean groin area daily and prn -apply nystatin cream -improving DVT prophylaxis-bilateral SCD/NATALIE; avoid chemical prophylaxis with procedure Code Status: Full code Discussed Condition With: Patient and nurse (2) Acute appendicitis Qualifiers: Acute appendicitis type: with localized peritonitis Appendicitis perforation presence: without perforation Appendicitis abscess presence: without abscess
[2018-01-09] MEDS ORDERED: Haloperidol Inj 5 MG/ML Ampul IM ONE (09:00)
[2018-01-09] MEDS: DEXAMETHASONE RIGHT EYE SCH ×4 (09:36→21:14)
[2018-01-09] MEDS: [UNRECOGNIZED DRUG - OTHER] RIGHT EYE SCH ×4 (09:36→21:14)
[2018-01-09] MEDS: Nystatin Liq 500,000 UNIT/5 ML UDC SWISH-SWAL SCH ×4 (09:36→21:09)
[2018-01-09] MEDS: Lisinopril 20 MG Tablet PO SCH ×3 (09:36→21:09)
[2018-01-09] MEDS: NEOMYCIN RIGHT EYE SCH ×4 (09:36→21:14)
[2018-01-09] MEDS: QUEtiapine 25 MG Tablet PO SCH ×3 (09:36→21:09)
--- NOTE | 2018-01-09 11:37 | P.PNPSY ---
Subjective Remarks: Patient seen for follow-up, chart reviewed. Discussion with nursing staff reported that patient patient this morning had become belligerent and upset at staff when her tray was removed and was noted to be paranoid with staff and refused medications this morning. Patient was found lying hospital bed after receiving ETO due to recent agitation this morning. She states that "they are talking to me" referring to nursing staff. She reports having dry mouth which she believes is secondary to her medications but agreed to take majority of her medications after interview. Patient continues to be worried about the possibility of this "operations and maintenance manager" around her apartment which she also mentions is managed under the candle making supervisor of the facility. She states that she wants to go to return back home states that she is not worried about this recurring again denying any suicidal homicidal ideations at this time. Collateral information from patient's family still pending. Review of Systems All other systems reviewed negative except as stated in HPI Mental Status Examination Appearance: Appropriate Consciousness: Alert Orientation: Person, Place, Date/Time Motor Activity: Normal gait Speech: Unremarkable Language: Adequate Fund of Knowledge: Inadequate Attention and Concentration: Adequate Memory: Impaired Mood: Irritable Affect: Irritable Thought Process & Associations: Intact, Tangential Thought Content: Delusional Hallucination Type: None Delusion Type: Paranoid, Other (Persecutory) Suicidal Ideation: No Suicidal Plan: No Suicidal Intention: No Homicidal Ideation: No Homicidal Plan: No Homicidal Intention: No Insight: Poor Judgment: Poor Assessment and Plan - Assessment (1) Unspecified psychosis Code(s): F29 - Unspecified psychosis not due to a substance or known physiological condition Status: Acute - Plan Plan: Patient currently continues with his paranoid persecutory delusion from her apartment but is wanting to return there. Patient noted with less intensity regarding this delusions but continues to be present. Collateral admission continues to be pending from patient's family to participate in safe discharge planning. As per collateral patient is welcome back to her apartment. We will continue current treatment. We will continue to monitor mood and behavior. Discharge planning a progress. Justification for Continued Inpatient Stay: At risk of further decompensation at lower level care.
[2018-01-10] MEDS: QUEtiapine 25 MG Tablet PO SCH (08:22)
[2018-01-10] MEDS: Lisinopril 20 MG Tablet PO SCH ×2 (08:22→20:59)
[2018-01-10] MEDS: Artificial Tears Opth Drops 15 ML Bottle EACH EYE PRN (08:23)
[2018-01-10] MEDS: DEXAMETHASONE RIGHT EYE SCH ×2 (08:24→12:28)
[2018-01-10] MEDS: NEOMYCIN RIGHT EYE SCH ×2 (08:24→12:28)
[2018-01-10] MEDS: [UNRECOGNIZED DRUG - OTHER] RIGHT EYE SCH ×2 (08:24→12:28)
[2018-01-10] MEDS: Nystatin Liq 500,000 UNIT/5 ML UDC SWISH-SWAL SCH ×4 (09:55→21:00)
--- NOTE | 2018-01-10 14:57 | P.PNIM ---
Subjective Interval history: Follow-up visit status post lap appendectomy, dementia, allergic rhinitis, rash. Patient seen and examined today. Reports she is doing well. States she is going home tomorrow. Patient also states that she does not want to take the medication for allergies as it is causing her to have dry mouth. Otherwise, denies pain and discomfort. Denies SOB/ dyspnea. Denies chest pain, palpitations, headaches, dizziness. Denies fevers, chills, n/v/d. Denies dysuria. Physical Exam Vital signs: Vital Signs 01/09/18 16:42 Temperature 97.8 F Pulse Rate 62 Respiratory Rate 17 Blood Pressure 174/82 H Intake & Output 01/09/18 01/10/18 01/10/18 18:59 06:59 18:59 Intake Total 1440 / 1440 240 / 240 Balance 1440 / 1440 240 / 240 Intake: Oral 1440 / 1440 240 / 240 Other: # Voids 3 Narrative: GENERAL: This is a well-nourished, well-developed patient, in no apparent distress. SKIN: Warm and dry HEENT: Normocephalic. Pupils equal round and reactive. Nose without bleeding. Airway patent. NECK: Trachea midline. CARDIOVASCULAR: Regular rate and rhythm without murmurs, gallops, or rubs. RESPIRATORY: Clear to auscultation. Breath sounds equal bilaterally. No wheezes , rales, or rhonchi. GASTROINTESTINAL: Abdomen soft, non-tender, nondistended. Bowel Sounds normoactive. Mid abdominal incision/lap site x3 with Steri-Strips, clean dry and intact no redness no drainage. MUSCULOSKELETAL: Extremities without clubbing, cyanosis, or edema. NEUROLOGICAL: Awake and alert. Oriented to place, person. No focal neuro deficit. Moves all extremities. Normal speech. Results - Labs CBC & Chem 7: 01/04/18 08:10 01/04/18 08:10 Assessment and Plan - Assessment (1) Hypertension Code(s): I10 - Essential (primary) hypertension Status: Acute (2) Acute appendicitis Code(s): K35.80 - Unspecified acute appendicitis Status: Acute (3) Unspecified psychosis Code(s): F29 - Unspecified psychosis not due to a substance or known physiological condition Status: Acute (4) Atrial fibrillation Code(s): I48.91 - Unspecified atrial fibrillation Status: Acute - Plan 72-year-old female with a past medical history significant for dementia, hypertension, congestive heart failure, atrial fibrillation and dyslipidemia who was admitted under Guzmán act after she called the police claiming that there was a strange man sleeping in her bed, threatened to shoot the property maintenance supervisor then kill herself. Patient also had complaints of right lower quadrant pain with abnormal appearing appendix on CT. Patient had undergone laparoscopic appendectomy on 01/02 and was cleared to discharge with the surgeon. Patient was admitted to the psychiatric unit for psychiatric evaluation and management. HTN, uncontrolled -continue lisinopril 20mg bid, clonidine patch 0.2 mg, Add Norvasc 5mg -monitor BP, encourage to take po medications Hx of afib/ CHF/HLD Hx Seizure/TBI -No CP, No SOB, no recent seizure activity -Unknown home meds, unrealiable historian, NO PCP. Recommend to see PCP and outpatient. Referred to [facility] -monitor VS Appendicitis s/p laparoscopic appendectomy on 01/02 s/p IV Cipro and Flagyl in the ED, now antibiotics discontinued s/p appendectomy -Incision healing well, incision site clean, dry and intact, no signs of infection -Tylenol for prn pain medications -Zofran prn for nausea Dementia with behavioral disturbance Suicidal/homicidal statements Acute on chronic -Ruled out toxic/metabolic etiologies for encephalopathy from the ED: UDS/ etoh neg, UA unremarkable, CBC/CMP WNL -Management with psychiatry team -May not be safe to DC by herself. Recommend [facility] follow up, med management. Allergic rhinitis Right Eye discomfort/eyelid edema Likely Eye dryness/related to allergic rhinitis no redness, no purulent drainage, increasing clear drainage and irritation -Artificial tears -DC zyrtec Groin rash/itchiness -apply nystatin cream, perineal care -improving DVT prophylaxis ambulatory Code Status: Full code Discussed Condition With: Patient, nurse Discharge Planning: DC disposition by primary team (2) Acute appendicitis Qualifiers: Acute appendicitis type: with localized peritonitis Appendicitis perforation presence: without perforation Appendicitis abscess presence: without abscess
--- NOTE | 2018-01-10 15:04 | P.DCO ---
- Home Health Nursing Order: Medical education, Signs/symptoms of disease process, Medication education-adverse effect - Case Management Consult Yes - Certification I have seen patient Sara Hudson on 01/10/18. My clinical findings support the need for the requested home health care services because: Medication compliance is questionable, Limited ability to care for self, Impaired cognition/judgement I certify that my clinical findings support that this patient is homebound because: Impaired cognitive ability/safety, Unable to use public transportation
--- NOTE | 2018-01-10 17:42 | P.PNPSY ---
Subjective Remarks: Patient seen for follow-up, chart reviewed. Discussion with nursing staff reported that patient continues to have some paranoid ideation when topic is brought up but noted to be behaviorally better with staff. Patient was found lying hospital bed noted B, cooperative. Patient states she slept fine, eating and drinking well with no difficulty or bowel movement. Patient state her mood is "very good" patient continues report wanting to return back to her residence and refusing assisted living facility referral as she does not want to lose her section 8 housing. Patient denies any suicide ideation again stating that she only made the statement to police that she felt were overwhelmed but had no intention of wanting to hurt himself. Patient also continued to state that she had no homicidal ideation stating that she only said that because she was very angry. Patient continues to have some paranoid ideation concerning events prior to her admission but noted to be less intense and less perseverative on this topic. Patient agrees to return home and allow home health services to visit and provide services and agrees to outpatient mental health follow-up as well as continue treatment. Patient likely for discharge tomorrow with the services in place. Review of Systems All other systems reviewed negative except as stated in HPI Mental Status Examination Appearance: Appropriate Consciousness: Alert Orientation: Person, Place, Date/Time Motor Activity: Normal gait Speech: Unremarkable Language: Adequate Fund of Knowledge: Inadequate Attention and Concentration: Adequate Memory: Impaired Mood: Irritable Affect: Irritable Thought Process & Associations: Intact, Tangential Thought Content: Delusional Hallucination Type: None Delusion Type: Paranoid (Lessening) Suicidal Ideation: No Suicidal Plan: No Suicidal Intention: No Homicidal Ideation: No Homicidal Plan: No Homicidal Intention: No Insight: Poor Judgment: Poor Assessment and Plan - Assessment (1) Unspecified psychosis Code(s): F29 - Unspecified psychosis not due to a substance or known physiological condition Status: Acute - Plan Plan: Patient continues with paranoid ideation which likely is chronic per collateral formation patient has dealt with paranoid delusions for years now which has a strange patient from her family. Current paranoid and persecutory delusions continues to be present but much less intense. Patient denies any suicidal homicidal ideation reports wanting to continue treatment and outpatient follow- up after discharge. Patient agrees to home health services which will be put in place upon discharge. We will increase quetiapine to 50 mg a.m./75 mg at bedtime for psychosis. We will continue to monitor mood and behavior. Patient like for discharge tomorrow. Discharge planning in progress. Justification for Continued Inpatient Stay: At risk of further decompensation at lower level care.
[2018-01-10] MEDS: amLODIPine 5 MG Tablet PO SCH (18:25)
[2018-01-10] MEDS ORDERED: QUEtiapine 25 MG Tablet PO SCH (21:00)
[2018-01-11 05:02] VITALS: BP 150/76; PULSE 62; RESP 15; TEMP 97.3; O2SAT 96
[2018-01-11] MEDS: amLODIPine 5 MG Tablet PO SCH (08:20)
[2018-01-11] MEDS: Lisinopril 20 MG Tablet PO SCH (08:21)
[2018-01-11] MEDS: Nystatin Liq 500,000 UNIT/5 ML UDC SWISH-SWAL SCH ×2 (08:21→14:40)
[2018-01-11] MEDS ORDERED: QUEtiapine 25 MG Tablet PO SCH (09:00)
--- NOTE | 2018-01-11 09:42 | P.PNGS ---
Subjective Interval history: Resting in bed Concerned about her apartment Eating regular diet No abdominal pain Physical Exam Vital signs: Vital Signs 01/10/18 18:15 01/11/18 05:01 Temperature 97.8 F 97.3 F L Pulse Rate 66 62 Respiratory Rate 16 15 Blood Pressure 138/73 150/76 H Pulse Oximetry 96 Intake & Output 01/10/18 01/11/18 01/11/18 18:59 06:59 18:59 Intake Total 1440 / 1440 720 / 720 480 / 480 Balance 1440 / 1440 720 / 720 480 / 480 Intake: Oral 1440 / 1440 720 / 720 480 / 480 Other: # Voids 3 1 Date of Last Bowel Movement 01/08/18 Narrative: Alert and awake Abd: Soft; non tender; incisions c/d/i; Some Steri strips remain in place Results - Labs 01/04/18 08:10 01/04/18 08:10 - Imaging Imaging: ITS Impressions Head MRI 01/07/18 00:00 CONCLUSION: 1. No acute bleed, acute infarct or other acute intracranial abnormality demonstrated. 2. Chronic white matter deposition and chronic widely scattered petechial hemorrhages. 3. Chronic sinusitis. Assessment and Plan - Assessment (1) Status post appendectomy, follow-up exam Code(s): Z09 - Encounter for follow-up examination after completed treatment for conditions other than malignant neoplasm Status: Acute - Plan 72 year old female admitted for psychosis; Guzmán Act; s/p lap appy -Tolerating regular diet -No pain -Okay to shower---pat incisions dry -Okay to remove Steri Strips -Avoid heavy pushing/pulling/lifting -No follow up appointment needed in the office -GS will sign off; Please call with any questions
--- NOTE | 2018-01-11 09:59 | P.PNIM ---
Subjective Interval history: Follow-up visit status post lap appendectomy, dementia, allergic rhinitis, rash. Patient seen and examined today. Reports she is doing well. Denies pain and discomfort. Denies SOB/ dyspnea. Denies chest pain, palpitations, headaches, dizziness. Denies fevers, chills, n/v/d. Denies dysuria. Physical Exam Vital signs: Vital Signs 01/10/18 18:15 01/11/18 05:01 Temperature 97.8 F 97.3 F L Pulse Rate 66 62 Respiratory Rate 16 15 Blood Pressure 138/73 150/76 H Pulse Oximetry 96 Intake & Output 01/10/18 01/11/18 01/11/18 18:59 06:59 18:59 Intake Total 1440 / 1440 720 / 720 480 / 480 Balance 1440 / 1440 720 / 720 480 / 480 Intake: Oral 1440 / 1440 720 / 720 480 / 480 Other: # Voids 3 1 Date of Last Bowel Movement 01/08/18 Narrative: GENERAL: This is a thin appearing, well-developed patient, in no apparent distress. SKIN: Warm and dry HEENT: Normocephalic. Pupils equal round and reactive. Nose without bleeding. Airway patent. NECK: Trachea midline. CARDIOVASCULAR: Regular rate and rhythm without murmurs, gallops, or rubs. RESPIRATORY: Clear to auscultation. Breath sounds equal bilaterally. No wheezes , rales, or rhonchi. GASTROINTESTINAL: Abdomen soft, non-tender, nondistended. Bowel Sounds normoactive. Mid abdominal incision/lap site x3 with Steri-Strips, clean dry and intact no redness no drainage. MUSCULOSKELETAL: Extremities without clubbing, cyanosis, or edema. NEUROLOGICAL: Awake and alert. Oriented to place, person. No focal neuro deficit. Moves all extremities. Normal speech. Results - Labs CBC & Chem 7: 01/04/18 08:10 01/04/18 08:10 Assessment and Plan - Assessment (1) Hypertension Code(s): I10 - Essential (primary) hypertension Status: Acute (2) Acute appendicitis Code(s): K35.80 - Unspecified acute appendicitis Status: Acute (3) Unspecified psychosis Code(s): F29 - Unspecified psychosis not due to a substance or known physiological condition Status: Acute (4) Atrial fibrillation Code(s): I48.91 - Unspecified atrial fibrillation Status: Acute - Plan 72-year-old female with a past medical history significant for dementia, hypertension, congestive heart failure, atrial fibrillation and dyslipidemia who was admitted under Guzmán act after she called the police claiming that there was a strange man sleeping in her bed, threatened to shoot the water plant maintenance mechanic then kill herself. Patient also had complaints of right lower quadrant pain with abnormal appearing appendix on CT. Patient had undergone laparoscopic appendectomy on 01/02 and was cleared to discharge with the surgeon. Patient was admitted to the psychiatric unit for psychiatric evaluation and management. HTN, uncontrolled -continue lisinopril 20mg bid, clonidine patch 0.2 mg, Norvasc 5mg -monitor BP, encourage to take po medications -Will need to f/u with a PCP. Compliance would be an issue as patient takes her meds on and off even during hospitalization. [facility] recommended. Hx of afib/ CHF/HLD Hx Seizure/TBI -No CP, No SOB, no recent seizure activity -Unknown home meds, unreliable historian, NO PCP. Recommend to see PCP and outpatient. Referred to [facility] -monitor VS Appendicitis s/p laparoscopic appendectomy on 01/02 s/p IV Cipro and Flagyl in the ED, now antibiotics discontinued s/p appendectomy -Incision healing well, incision site clean, dry and intact, no signs of infection -Tylenol for prn pain medications -Zofran prn for nausea Dementia with behavioral disturbance Suicidal/homicidal statements Acute on chronic -Ruled out toxic/metabolic etiologies for encephalopathy from the ED: UDS/ etoh neg, UA unremarkable, CBC/CMP WNL -Management with psychiatry team -May not be safe to DC by herself. Recommend [facility] follow up, med management. Allergic rhinitis Right Eye discomfort/eyelid edema Likely Eye dryness/related to allergic rhinitis no redness, no purulent drainage, increasing clear drainage and irritation -Artificial tears -DC zyrtec Groin rash/itchiness -apply nystatin cream, perineal care -improving DVT prophylaxis ambulatory Stable from Hospitalist standpoint. Thank you. Code Status: Full Code Discussed Condition With: Patient, nursing Discharge Planning: DC disposition by primary team (2) Acute appendicitis Qualifiers: Acute appendicitis type: with localized peritonitis Appendicitis perforation presence: without perforation Appendicitis abscess presence: without abscess
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
== END 2018-01-11 14:35 | disposition home or self-care (01) ==
LOC: H4EA 10:59
PROVIDERS: ADMIT Student in an Organized Health Care Education/Training Program; ATTEND Student in an Organized Health Care Education/Training Program